=== PATIENT | male | born 1955 | race Caucasian/White ===

== ENCOUNTER 2023-12-06 10:23 | Emergency (ER) | payer MEDICARE, MEDICAID, SELFPAY ==
[2023-12-06 10:26] VITALS: BP 169/75; PULSE 113; RESP 18; TEMP 36.8; O2SAT 92; BMI 33.9
--- NOTE | 2023-12-06 10:27 | CT_ITS ---
WS: [id number] CT HEAD TECHNIQUE: Noncontrast CT of the head obtained from the skullbase to the vertex. CLINICAL INFORMATION: trauma COMPARISON: None. DLP: 1825.[address] scans at [facility] use at least one of these dose optimization techniques: automated e xposure control; mA and/or kV adjustment per patient size (includes targeted exams where dose is matc hed to clinical indication); or iterative reconstruction. FINDINGS: No evidence of intracranial hemorrhage or mass effect. Ventricular system and basal cisterns are ray nt. Advanced small vessel changes with moderate to advanced parenchymal volume loss. No extra-axial f luid collections. No evidence of mass or mass effect. Chronic lacunar infarct LEFT basal ganglia. Chr onic infarcts in the LEFT cerebellum. Small retention cyst RIGHT maxillary sinus. Mastoid air cells are well aerated. Normal posterior naso pharynx. IMPRESSION: 1. No evidence of intracranial hemorrhage or mass effect. 2. Advanced small vessel changes with moderate to advanced parenchymal volume loss. 3. Intracranial vascular calcification. 4. No acute intracranial findings.
--- NOTE | 2023-12-06 10:27 | CT_ITS ---
WS: [id number] CT CERVICAL TRAUMA TECHNIQUE: Noncontrast CT of the cervical spine with coronal and sagittal reformatted images. CLINICAL INFORMATION: trauma COMPARISON: None. DLP: 1825.[address] scans at [facility] use at least one of these dose optimization techniques: automated e xposure control; mA and/or kV adjustment per patient size (includes targeted exams where dose is matc hed to clinical indication); or iterative reconstruction. FINDINGS: Straightening of the normal cervical lordosis. Moderate spondylitic changes. Anterior hypertrophic ch anges in the mid cervical spine. Normal craniocervical junction. Normal C1-C2 articulation. Dens is n ormal in appearance. Normal occipital condyles. No high-grade spinal canal narrowing. Normal C1 ring. No evidence of acute fracture or dislocation. Normal prevertebral soft tissues. Mastoids air cells are well aerated. IMPRESSION: No evidence of acute fracture or dislocation.
--- NOTE | 2023-12-06 10:28 | XRR_ITS ---
PROCEDURE INFORMATION: Exam: XR Right Knee Exam date and time: 12/06/2023 10:36 AM Age: 68 years old Clinical indication: Injury or trauma; Fall; Bleeding/hemorrhage; Knee; Right TECHNIQUE: Imaging protocol: Radiologic exam of the right knee. Views: 3 views. COMPARISON: No relevant prior studies available. FINDINGS: Bones/joints: Minimal articular surface narrowing and spurring. Mild osteopenia. No erosions or chondrocalcinosis. Soft tissues: Normal. Vasculature: Arterial calcifications. XR/XR knee RT 3V* [id number] IMPRESSION: No acute findings.
--- NOTE | 2023-12-06 10:35 | XRR_ITS ---
PROCEDURE INFORMATION: Exam: XR Left Shoulder Exam date and time: 12/06/2023 10:58 AM Age: 68 years old Clinical indication: Injury or trauma; Fall; Blunt trauma (contusions or hematomas); Shoulder; Left TECHNIQUE: Imaging protocol: Radiologic exam of the left shoulder. Views: 2 or more views. COMPARISON: No relevant prior studies available. FINDINGS: Bones/joints: Moderate acromioclavicular and glenohumeral spurring. Rotator cuff degeneration with the humeral head riding immediately beneath the acromion process. No fracture or dislocation. Deformity of multiple left ribs from prior fracture. Pleural space: Pleural thickening as well as an infiltrate or fibrosis is seen in the left lung. Routine chest radiographs recommended. Soft tissues: Normal. XR/XR shoulder LT min 2V* [id number] IMPRESSION: 1. Degenerative changes. 2. Evidence of prior left chest trauma. 3. Abnormal left lung, routine chest radiograph suggested.
--- NOTE | 2023-12-06 10:46 | W.ED.FALL ---
HPI - Fall General: Chief Complaint: Head Injury Stated Complaint: Fall Time Seen by Provider: 12/06/23 10:24 Source: patient Mode of arrival: EMS History of Present Illness: 68-year-old male presents via EMS from [facility]. Patient is walking to the bathroom without a walker and stumbled and fell. He has a small abrasion above his left eye is complaining of right knee pain and left shoulder pain. He is not on any anticoagulants. He denies any nausea or vomiting. C-collar is in place. MD complaint: fall Onset (ago): hour(s) Fall from: standing Fall witnessed: yes, by living facility staff Place fall occurred: assisted/SNF Loss of consciousness: None Prolonged down time: no Context: tripped/slipped Location of injury: head Location of injury - extremities: Left: shoulder and Right: knee Associated symptoms-after fall: Denies abdominal pain, chest pain, confusion, difficulty walking, headache(s), hematuria, lightheadedness, neck pain, numbness, short of breath, vertigo or weakness Review of Systems Const: Denies: fever(s) or chills Card: Denies: chest pain or lightheadedness Resp: Denies: dyspnea GI: Denies: abdominal pain : Denies: hematuria Musc: Denies: neck pain Skin/Breast: Denies: rash Neuro: Denies: headache(s), difficulty walking, vertigo or confusion Physical Exam Const: COMMON NORMALS: no acute distress GENERAL APPEARANCE: cooperative and comfortable ORIENTATION/CONSCIOUSNESS: Yes awake, Yes oriented to person, Yes oriented to place and Yes oriented to time HENMT: COMMON NORMALS: normocephalic HEAD & SCALP: normocephalic OTHER: partial thickness abrasion above L eye Resp: COMMON NORMALS: normal respiratory effort, No retractions, No use of accessory muscles and clear to auscultation bilaterally AUSCULTATION: clear to auscultation bilaterally Cardio: COMMON NORMALS: regular rate, regular rhythm and No murmurs present (Cardio) RATE: regular rate RHYTHM: regular rhythm GI: COMMON NORMALS: Soft to palpation and No hepatosplenomegaly present AUSCULTATION: Yes normoactive bowel sounds PALPATION: Yes Soft to palpation, No Tenderness to palpation present (GI), No Guarding due to palpation present (GI) and Yes No hepatosplenomegaly present Extremity: COMMON NORMALS: normal to inspection, capillary refill normal, no clubbing, cyanosis or edema, no calf tenderness and no pedal edema Neuro: SENSORIUM/ORIENTATION: Yes oriented to person, Yes oriented to place and Yes oriented to time Skin: COMMON NORMALS: no rashes or lesions noted GENERAL SKIN EXAM: no rashes or lesions noted Course Vital Signs: Vital signs: Vital Signs Temperature 98.2 F 12/06/23 15:17 Pulse Rate 107 H 12/06/23 15:17 Respiratory Rate 18 12/06/23 15:17 Blood Pressure 139/90 12/06/23 15:17 Pulse Oximetry 92 12/06/23 15:17 Oxygen Delivery Me thod Room Air 12/06/23 13:52 MDM - Fall Medical Decision Making Patient fell while walking to the bathroom. He did hit his head. CTs unremarkable no acute fractures no intracranial bleeding. He has had falls in the past. He is abrasion on the forehead does not need intervention can apply topical antibiotic ointment discharged back to the assisted labs and imaging reviewed Medical Records I reviewed the patient's medical records. Lab Data I reviewed the patient's lab results. 12/06/23 10:47 12/06/23 10:47 Radiology Impressions Knee X-Ray 12/06/23 10:28 IMPRESSION: No acute findings. Shoulder X-Ray 12/06/23 10:35 IMPRESSION: 1. Degenerative changes. 2. Evidence of prior left chest trauma. 3. Abnormal left lung, routine chest radiograph suggested. Laboratory Results WBC 9.75 10^3/uL (3.29-11.43) 12/06/23 10:47 RBC 5.04 10^6/uL (3.85-5.65) 12/06/23 10:47 Hgb 14.10 g/dL (11.27-16.99) 12/06/23 10:47 Hct 44.6 % (37-53) 12/06/23 10:47 MCV 88.5 fl (82-101) 12/06/23 10:47 MCH 28.0 pg (27-33) 12/06/23 10:47 MCHC 31.6 g/dL (30-55) 12/06/23 10:47 RDW 14.1 % (12.1-15.1) 12/06/23 10:47 Plt Count 259 10^3/cmm (157-399) 12/06/23 10:47 MPV 10.3 fL (7.4-10.4) 12/06/23 10:47 Neut % (Auto) 82.0 % 12/06/23 10:47 Lymph % (Auto) 9.5 % 12/06/23 10:47 Antelope % (Auto) 6.4 % 12/06/23 10:47 Eos % (Auto) 1.4 % 12/06/23 10:47 Baso % (Auto) 0.4 % 12/06/23 10:47 Neut # (Auto) 7.99 10^3/uL (1.8-7.7) H 12/06/23 10:47 Lymph # (Auto) 0.9 10^3/uL (0.8-4.8) 12/06/23 10:47 Antelope # (Auto) 0.6 10^3/uL (0.2-0.9) 12/06/23 10:47 Eos # (Auto) 0.1 10^3/uL (0.0-0.8) 12/06/23 10:47 Baso # (Auto) 0.0 10^3/uL (0.0-0.1) 12/06/23 10:47 Nucleated RBC % (auto) 0 % 12/06/23 10:47 Nucleated RBCs # 0.0 /100WBC 12/06/23 10:47 Sodium 135 mmol/L (136-145) L 12/06/23 10:47 Potassium 3.8 mmol/L (3.5-5.1) 12/06/23 10:47 Chloride 98 mmol/L (98-107) 12/06/23 10:47 Carbon Dioxide 28 mmol/L (22-29) 12/06/23 10:47 Anion Gap 12.8 (5-19) 12/06/23 10:47 BUN 19 mg/dL (8-23) 12/06/23 10:47 Creatinine 1.4 mg/dL (0.7-1.2) H 12/06/23 10:47 GFR Calculation 50.7 mL/min (90-130) L 12/06/23 10:47 Glucose 374 mg/dL (65-115) H 12/06/23 10:47 POC Glucose 281 mg/dL (70-110) H 12/06/23 12:34 Calculated Osmolality 298 mOsm/kg (285-295) H 12/06/23 10:47 Calcium 8.1 mg/dL (8.5-10.5) L 12/06/23 10:47 Total Bilirubin 0.3 mg/dL (0.15-1.2) 12/06/23 10:47 AST 16 U/L (0-40) 12/06/23 10:47 ALT 9 U/L (0-41) 12/06/23 10:47 Alkaline Phosphatase 83 U/L (40-130) 12/06/23 10:47 Total Protein 6.9 g/dL (6.6-8.7) 12/06/23 10:47 Albumin 2.8 g/dL (3.5-5.2) L 12/06/23 10:47 Globulin 4.1 g/dL (1.3-4.6) 12/06/23 10:47 Urine Color Yellow (Yellow) 12/06/23 11:39 Urine Appearance Clear (CLEAR) 12/06/23 11:39 Urine pH 6 (5-7) 12/06/23 11:39 Ur Specific [place] 1.010 (1.005-1.030) 12/06/23 11:39 Urine Protein Neg (Negative) 12/06/23 11:39 Urine Glucose (UA) 4+ (Normal) H 12/06/23 11:39 Urine Ketones Negative (Negative) 12/06/23 11:39 Urine Blood Neg (Negative) 12/06/23 11:39 Urine Nitrate Negative (Negative) 12/06/23 11:39 Urine Bilirubin Neg (Negative) 12/06/23 11:39 Urine Urobilinogen Norm mg/dL (Negative) 12/06/23 11:39 Ur Leukocyte Esterase Negative (Negative) 12/06/23 11:39 All radiology interpretation(s) finalized by discharge Discharge Plan Discharge Patient Disposition: Home Clinical Impression: Closed head injury, Hyperglycemia Condition: Stable Discharge Orders: Discharge ED (Routine); Ordered 12/06/23 Ordered By: Rowdy Choi Discharge Diet: Usual diet Discharge Activity: Increase activity as tolerated Patient Instructions: Opioid Safety, Pain Management Activity Restrictions/Additional Instructions: Thank you for choosing [facility] for your healthcare needs today. Please realize this is an emergency room and that we are providing you with a medical screening exam and this may not be complete and all inclusive of all the testing and or work up that you may need to determine your ailment or severity of your illness. It is very important that you follow up as instructed or that you return to the Emergency Department should you have concerns or if your condition changes or worsens in any way. You were seen today after a fall. Scan the head and neck and plain x-rays did not show any acute injury. The abrasion on the forehead does not require stitches you can apply topical antibiotic ointment to it once or twice a day until healed. Coding Level of Care Code ED Product Manager Medical Device for Ty Mathews
[2023-12-06 10:53] LABS: Basophils % 0.4 %; Eosinophils # 0.1 10^3/uL (0.0-0.8); Eosinophils % 1.4 %; Hematocrit 44.6 % (37-53); Lymphocytes # 0.9 10^3/uL (0.8-4.8); Lymphocytes % 9.5 %; Mean Corpuscular HGB Conc 31.6 g/dL (30-55); Mean Corpuscular Volume 88.5 fl (82-101); Mean Platelet Volume 10.3 fL (7.4-10.4); Monocytes # 0.6 10^3/uL (0.2-0.9); Monocytes % 6.4 %; Neutrophils # 7.99 10^3/uL (1.8-7.7); Nucleated Red Blood Cells % 0 %; Platelet Count 259 10^3/cmm (157-399); Red Blood Count 5.04 10^6/uL (3.85-5.65); Red Cell Distribution Width 14.1 % (12.1-15.1); White Blood Count 9.75 10^3/uL (3.29-11.43)
[2023-12-06 11:13] LABS: Alanine Aminotransferase 9 U/L (0-41); Albumin Level 2.8 g/dL (3.5-5.2); Alkaline Phosphatase 83 U/L (40-130); Anion Gap 12.8 (5-19); Aspartate Amino Transferase 16 U/L (0-40); Blood Urea Nitrogen 19 mg/dL (8-23); Calcium 8.1 mg/dL (8.5-10.5); Carbon Dioxide 28 mmol/L (22-29); Chloride 98 mmol/L (98-107); Globulin 4.1 g/dL (1.3-4.6); Glomerular Filtration Rate 50.7 mL/min (90-130); Glucose 374 mg/dL (65-115); Osmolality Calculated 298 mOsm/kg (285-295); Potassium 3.8 mmol/L (3.5-5.1); Sodium 135 mmol/L (136-145); Total Bilirubin 0.3 mg/dL (0.15-1.2); Total Protein 6.9 g/dL (6.6-8.7)
[2023-12-06 11:29] VITALS: BP 139/90; PULSE 114; RESP 18; O2SAT 90
[2023-12-06 11:35] VITALS: BP 139/90
[2023-12-06 11:48] LABS: Add Urine Microscopic? NO; Charge for UA Resulting for Rev
--- NOTE | 2023-12-06 11:54 | PC.NURSE ---
PATIENT C-COLLAR REMOVED PER PROVIDER.
[2023-12-06 11:56] LABS: Bilirubin Urine Neg (Negative); Blood Urine Neg (Negative); Glucose Urine UA 4+ (Normal); Ketones Urine Negative (Negative); Leukocyte Esterase Urine Negative (Negative); Nitrate Urine Negative (Negative); Protein Urine Neg (Negative); Urine Appearance Clear (CLEAR); Urine Color Yellow (Yellow); Urobilinogen Urine Norm (Negative); pH Urine 6 (5-7)
[2023-12-06 12:41] LABS: Glucose Point of Care 281 mg/dL (70-110)
[2023-12-06] MEDS: insulin nph human 100 units/1 mL 15 UNIT SUBCUT (13:28)
[2023-12-06] MEDS: tetanus-diphtheria tox (adult) 0.5 mL SDV IM (13:29)
[2023-12-06 13:52] VITALS: BP 139/90; PULSE 107; O2SAT 92
[2023-12-06 15:17] VITALS: BP 139/90; PULSE 107; RESP 18; TEMP 36.8; O2SAT 92
== END 2023-12-06 15:21 | disposition home or self-care (01) ==
PROVIDERS: Emergency Provider Family Medicine
DX: S00.81XA Abrasion of other part of head, initial encounter (principal); W01.0XXA Fall on same level from slipping, tripping and stumbling without subsequent striking against object, initial encounter; E11.65 Type 2 diabetes mellitus with hyperglycemia; Z23 Encounter for immunization
CPT/HCPCS: 36415; 36416; 70450; 72125; 73030; 73562; 80053; 81003; 82962; 85025; 90471; 90714; 96372; 99284; J1815

== ENCOUNTER 2024-02-13 16:39 | Inpatient (IN) | payer MEDICARE, MEDICAID, SELFPAY ==
[2024-02-13] VITALS (9 sets, daily range): BP systolic 158–179; BP diastolic 95–110; PULSE 97–105; RESP 15–28; TEMP 36.6–37; O2SAT 92–99; BMI 33.0
--- NOTE | 2024-02-13 16:40 | XRR_ITS ---
PROCEDURE INFORMATION: Exam: XR Right Hip Exam date and time: 02/13/2024 4:48 PM Age: 68 years old Clinical indication: Injury or trauma; Fall; Blunt trauma (contusions or hematomas); Right; Hip TECHNIQUE: Imaging protocol: Radiologic exam of the right hip. Views: 1 view hip with pelvis when performed. COMPARISON: No relevant prior studies available. FINDINGS: Bones/joints: There is a curvilinear of lucency projecting over the intertrochanteric portion of the right hip inconclusive for nondisplaced fracture. 2 cm mildly expansile radiolucent bone lesion right inferior pubic ramus probably benign but difficult to further assess on this study. There is prominent coarsened trabecular pattern within the right iliac bone partially visualized suspicious for Paget's disease. Soft tissues: Unremarkable. XR/XR hip RT 2-3V wo/w pel* [id number] IMPRESSION: 1. Findings inconclusive for nondisplaced intertrochanteric fracture right hip. Recommend follow-up CT exam for clarification. 2. Additional nonemergent findings as above.
--- NOTE | 2024-02-13 16:43 | XRR_ITS ---
PROCEDURE INFORMATION: Exam: XR Chest Exam date and time: 02/13/2024 4:52 PM Age: 68 years old Clinical indication: Injury or trauma; Fall; Blunt trauma (contusions or hematomas) TECHNIQUE: Imaging protocol: Radiologic exam of the chest. Views: 1 view. COMPARISON: CT cervical spin wo con* [id number] 12/06/2023 11:09 AM FINDINGS: Lungs: There are ill-defined masslike opacities left lower lung zone superimposed on left basilar consolidation and effusion that needs further evaluation. Right lung field is aerated and clear. Pleural spaces: Unremarkable. No pleural effusion. No pneumothorax. Heart/Mediastinum: Heart is mildly enlarged. Mediastinal silhouette is not well defined around the aorta knob which may be due to patient rotation. Bones/joints: There is deformity of the left lateral ribcage secondary to fractures of indeterminate age. XR/XR chest 1V portable [id number] IMPRESSION: 1. Nonspecific masslike consolidative opacities partially opacifying the left lower hemithorax which follow-up CT chest recommended for further assessment there 2. Deformity left mid ribcage that may be secondary to old fractures and should also be reassessed on follow-up chest CT.
--- NOTE | 2024-02-13 16:44 | ED_ITS ---
HPI - Fall General: Chief Complaint: Fall Stated Complaint: r hip pain post fall Time Seen by Provider: 02/13/24 16:40 Source: patient and EMS Mode of arrival: EMS Limitations: no limitations History of Present Illness: 68-year-old male is here from nursing [facility] he had a witnessed fall from standing landing on his right hip. He complains of right hip pain especially with movement he is not able to bear any weight on that hip. Denies hitting his head denies any other injuries rates his pain a 6 out of 10 currently. Associated symptoms-after fall: Denies abdominal pain, chest pain, headache(s) or neck pain Review of Systems Const: Denies: fever(s), chills, body aches or change in appetite ENMT: Denies: throat pain or dental pain Card: Denies: chest pain Resp: Denies: dyspnea GI: Denies: abdominal pain, nausea, vomiting or diarrhea Musc: Reports: extremity pain; Denies: neck pain or back pain Skin/Breast: Denies: rash Neuro: Denies: headache(s) Physical Exam Const: COMMON NORMALS: no acute distress, patient oriented x3 and healthy appearing HENMT: COMMON NORMALS: normocephalic and atraumatic HEAD & SCALP: normocephalic and atraumatic Eye: COMMON NORMALS: conjunctivae normal CONJUNCTIVA: Yes conjunctivae normal Neck/C-Spine: COMMON NORMALS: full ROM and supple Chest: COMMONS NORMALS: normal inspection of the chest Resp: COMMON NORMALS: normal respiratory effort, No retractions, No use of accessory muscles and clear to auscultation bilaterally AUSCULTATION: clear to auscultation bilaterally Cardio: COMMON NORMALS: regular rate, regular rhythm and No murmurs present (Cardio) RATE: regular rate RHYTHM: regular rhythm GI: COMMON NORMALS: Normal to inspection, nondistended, normoactive bowel sounds present, Soft to palpation, non-tender and no masses PALPATION: Yes Soft to palpation Extremity: COMMON NORMALS: normal to inspection NARRATIVE EXTREMITY EXAM: Tenderness noted to left hip Neuro: COMMON NORMALS: patient oriented x3, moves all extremities and no focal motor deficits Psych: COMMON NORMALS: mental status grossly normal, Normal thought process present and cooperative THOUGHT PROCESS: Normal thought process present Skin: COMMON NORMALS: no rashes or lesions noted and no wounds GENERAL SKIN EXAM: no rashes or lesions noted Course Vital Signs: Vital signs: Vital Signs Temperature 97.9 F 02/13/24 16:47 Pulse Rate 99 02/13/24 16:44 Respiratory Rate 16 02/13/24 16:52 Blood Pressure 162/103 02/13/24 16:44 Pulse Oximetry 92 02/13/24 16:52 Oxygen Delivery Me thod Room Air 02/13/24 16:44 MDM - Fall Medical Decision Making Patient presents with right hip fracture from a fall spoke to orthopedist along with hospitalist will admit he has no other injuries no head injuries. Medical Records I reviewed the patient's medical records. Lab Data I reviewed the patient's lab results. All radiology interpretation(s) finalized by discharge Discharge Plan Discharge Patient Disposition: Admitted As Inpatient Clinical Impression: Closed fracture of right hip Condition: Stable Coding Level of Care Code ED Manager Integration for Ty Mathews
--- NOTE | 2024-02-13 16:44 | ECG_ITS ---
[facility] Test Date: 2024-02-13 Pat Name: Jarrod Almonte Department: Room: Gender: Male Music Therapist: : 1955 Requested By: Kayla Villa Order Number: [id number] Nicole MD: Prince Angeles M.D. Measurements Intervals [place] Rate: 98 P: 46 [place]: 208 QRS: -12 QRSD: 97 T: 93 QT: 359 QTc: 459 Interpretive Statements SINUS RHYTHM ANTERIOR MYOCARDIAL INFARCTION , OF INDETERMINATE AGE [40+ ms Q WAVE AND/OR ST/T ABNORMALITY IN V3/V4] No previous ECG available for comparison Electronically Signed On 02-13-2024 22:50:47 CDT by Prince Angeles M.D. [id number]
[2024-02-13] MEDS: morphine 4 mg/mL SDV 1 mL IVP ×2 (16:52→18:31)
[2024-02-13] MEDS: ondansetron 2 mg/ML SDV 2 mL 4 MG IVP (16:53)
--- NOTE | 2024-02-13 17:09 | PM.HP ---
Providers/Chief Complaint Chief Complaint: r hip pain post fall History of Present Illness Jarrod Almonte is a 68 year old male resident of [facility] presented with chief complaint of sustaining a fall. Patient is stating that he was walking when he slipped entering the door where landed on his right side. He was not able to bear weight on his legs at that time EMS was called in the ER he has been diagnosed with hip fracture Dr. Ag will see him in the morning, he is not complaining active chest pain shortness of breath confusion shortness of breath or worsening of hip pain. He does not carry any history of coronary disease [facility] CHF. No recent seizure related activity, his son lives nearby. He is full code. Review of Systems Const: Denies: fever(s) Eyes: Denies: change in vision ENMT: Denies: throat pain Card: Denies: chest pain Resp: Denies: dyspnea GI: Denies: abdominal pain : Denies: flank pain Musc: Reports: back pain and extremity pain Medications/Allergies Allergies Allergy/AdvReac Type Severity Reaction Status Date / Time No Known Allergies Allergy Verified 12/06/23 10:33 PFSH Acute PFSH: Medical History Hypertension Diabetes Family History Other CAD (coronary artery disease) Social History Smoking and tobacco/nicotine status: never used tobacco/nicotine Vitals/I&O/Wt Last Vital Signs Temp 97.9 F 02/13/24 16:47 Pulse 99 02/13/24 16:44 Resp 16 02/13/24 16:52 BP 162/103 02/13/24 16:44 Pulse Ox 92 02/13/24 16:52 O2 Del Method Room Air 02/13/24 16:44 Weight last 48 hrs Weight 110.677 kg Physical Exam Narrative: Patient is awake and alert Laying supine Nonfocal neuroexam Hypertensive Lower extremity trace edema Ankle swelling noted Pleasant cooperative S1, S2 No audible stridor or wheezing Currently on room air Data 02/13/24 17:11 02/13/24 17:11 A&P Assessment and plan (1) Closed fracture of right hip: Plan Hip fracture after sustaining a fall Mechanical fall Request Faye catheter Opioids for pain management along bowel regimen Dr. Ag consulted N.p.o. at midnight DVT prophylaxis: SCDs For hypertension I will give him beta-rafa and amlodipine Request BNP Full code Resident of residential, History of diabetes we will use consistent carb diet until midnight Check A1c level and use sliding scale for now Attestations Medical Necessity Statement*: More than 2 midnights anticipated for management of hip fracture Diagnoses Closed fracture of right hip S72.001A
[2024-02-13 17:19] LABS: Basophils # 0.1 10^3/uL (0.0-0.1); Basophils % 0.5 %; Eosinophils # 0.2 10^3/uL (0.0-0.8); Eosinophils % 1.6 %; Hematocrit 39.7 % (37-53); Lymphocytes # 1.2 10^3/uL (0.8-4.8); Lymphocytes % 12.8 %; Mean Corpuscular HGB Conc 30.5 g/dL (30-55); Mean Corpuscular Hemoglobin 27.5 pg (27-33); Mean Corpuscular Volume 90.2 fl (82-101); Mean Platelet Volume 9.1 fL (7.4-10.4); Monocytes # 0.8 10^3/uL (0.2-0.9); Neutrophils # 7.26 10^3/uL (1.8-7.7); Neutrophils % 76.7 %; Nucleated Red Blood Cells % 0 %; Platelet Count 349 10^3/cmm (157-399); Red Cell Distribution Width 16.9 % (12.1-15.1); White Blood Count 9.47 10^3/uL (3.29-11.43)
[2024-02-13 17:34] LABS: Alanine Aminotransferase 10 U/L (0-41); Albumin Level 2.7 g/dL (3.5-5.2); Alkaline Phosphatase 104 U/L (40-130); Anion Gap 12.2 (5-19); Aspartate Amino Transferase 24 U/L (0-40); Blood Urea Nitrogen 16 mg/dL (8-23); Calcium 7.7 mg/dL (8.5-10.5); Carbon Dioxide 28 mmol/L (22-29); Chloride 98 mmol/L (98-107); Creatinine Clr Calc Pharmacy 71.8107; Globulin 4.6 g/dL (1.3-4.6); Glomerular Filtration Rate 55.2 mL/min (90-130); Glucose 124 mg/dL (65-115); Osmolality Calculated 281 mOsm/kg (285-295); Potassium 4.2 mmol/L (3.5-5.1); Sodium 134 mmol/L (136-145); Total Bilirubin 0.2 mg/dL (0.15-1.2); Total Protein 7.3 g/dL (6.6-8.7)
[2024-02-13] MEDS: morphine IR 15 mg Tablet PO (19:48)
[2024-02-13] MEDS: metoprolol tartrate 25 mg Tablet PO (19:48)
[2024-02-13] MEDS: sodium chloride 0.9% 1,000 ML 75 ML IV (19:50)
[2024-02-13 19:54] LABS: Estmated Average Glucose 128; Hemoglobin A1C 6.1 % (4.0-6.0)
[2024-02-13 20:10] LABS: Thyroid Stimulating Hormone 5.23 uIU/mL (0.27-4.20); Vitamin B12 1008 pg/mL (232-1245)
[2024-02-13] MEDS: ALPRAZolam 0.5 mg Tablet PO (21:49)
[2024-02-14] VITALS (9 sets, daily range): BP systolic 111–158; BP diastolic 64–99; PULSE 66–80; RESP 16–18; TEMP 36.3–37.1; O2SAT 90–93
[2024-02-14 05:22] LABS: Basophils # 0.1 10^3/uL (0.0-0.1); Basophils % 0.4 %; Eosinophils # 0.1 10^3/uL (0.0-0.8); Eosinophils % 1.2 %; Hematocrit 36.4 % (37-53); Lymphocytes # 1.9 10^3/uL (0.8-4.8); Lymphocytes % 15.9 %; Mean Corpuscular HGB Conc 31.3 g/dL (30-55); Mean Corpuscular Hemoglobin 27.6 pg (27-33); Mean Corpuscular Volume 88.1 fl (82-101); Mean Platelet Volume 9.2 fL (7.4-10.4); Monocytes # 1.1 10^3/uL (0.2-0.9); Monocytes % 9.3 %; Neutrophils # 8.45 10^3/uL (1.8-7.7); Neutrophils % 72.8 %; Nucleated Red Blood Cells % 0 %; Platelet Count 354 10^3/cmm (157-399); Red Blood Count 4.13 10^6/uL (3.85-5.65); Red Cell Distribution Width 16.8 % (12.1-15.1); White Blood Count 11.62 10^3/uL (3.29-11.43)
[2024-02-14 05:36] LABS: Anion Gap 10.5 (5-19); Blood Urea Nitrogen 15 mg/dL (8-23); C Reactive Protein 38.6 mg/L (0.0-4.9); Carbon Dioxide 28 mmol/L (22-29); Chloride 98 mmol/L (98-107); Creatinine Clr Calc Pharmacy 84.3585; Magnesium 1.8 mg/dL (1.7-2.3); Osmolality Calculated 271 mOsm/kg (285-295); Phosphorus 3.3 mg/dL (2.5-4.5); Potassium 4.5 mmol/L (3.5-5.1); Sodium 132 mmol/L (136-145)
[2024-02-14 05:50] LABS: Glucose 38 mg/dL (65-115)
[2024-02-14] MEDS: dextrose 10% 125 ML 750 ML IV (06:06)
--- NOTE | 2024-02-14 06:26 | PC.NURSE ---
Low glucose: Pt with glucose of 38, bag of D10 pulled from pyxis on override to hang until hypoglycemia protocol could be initiated.
[2024-02-14] MEDS: dextrose 5%-sod chloride 0.45% 1,000 ML 75 ML IV (06:33)
[2024-02-14 06:41] LABS: Glucose Point of Care 78 mg/dL (70-110)
[2024-02-14 06:41] LABS: Glucose Point of Care 74 mg/dL (70-110)
--- NOTE | 2024-02-14 07:48 | CT_ITS ---
WS: [id number] CT RIGHT HIP, NONCONTRAST HISTORY: fracture Technique: All CT scans at [facility] use at least one of these dose optimization techniques: automated exposure control; mA and/or kV adjustment per patient size (includes targeted exams where dose is matched to clinical indication); or iterative reconstruction. DLP: 529.33 mGy.cm COMPARISON: Radiograph 02/13/2024 Acute RIGHT hip fracture. Slightly comminuted intertrochanteric fracture. The fracture extends to the base of the femoral neck. Mild separation along the anterior fracture line near the superior greater trochanter measures 1.2 cm. There are additional sclerotic changes at the femoral head with subchond ral cystic changes and loss of the normal cortex consistent with developing osteonecrosis. No acetabu lar fracture. Mild degenerative air in the SI joint. Remote healed fracture inferior RIGHT pubic rami. Heavy calcification in the iliac and femoral artery. Small soft tissue hematoma lateral to the hip. F oley catheter noted in the urinary bladder. CT/CT hip RT wo con* [id number] IMPRESSION: Mildly comminuted and impacted intratrochanteric fracture. Remote RIGHT inferior pubic rami fracture. Small soft tissue hematoma/contusion lateral to the RIGHT hip fracture. RIGHT femoral head osteonecrosis.
--- NOTE | 2024-02-14 08:15 | P.CONIM_ITS ---
Providers/Reason For Consult 2 Consulting Physician/Specialty*: Hospitalist Reason for Consult*: Right hip fracture Attending Physician: Alex Cortes MD History of Present Illness History of Present Illness Jarrod Almonte is a 68 year old male resident of [facility] presented with chief complaint of sustaining a fall. Patient is stating that he was walking when he slipped entering the door where landed on his right side. He was not able to bear weight on his legs at that time EMS was called in the ER he has been diagnosed with hip fracture Review of Systems 2 Const: Denies: fever(s) Eyes: Denies: change in vision ENMT: Denies: throat pain Card: Denies: chest pain Resp: Denies: dyspnea GI: Denies: abdominal pain : Denies: flank pain Musc: Reports: back pain and extremity pain Medications/Allergies Allergies Allergy/AdvReac Type Severity Reaction Status Date / Time No Known Allergies Allergy Verified 12/06/23 10:33 Current Medications Generic Name Dose Route Start Last Admin Trade Name Freq PRN Reason Stop Dose Admin Dextrose 125 mls @ 750 mls/hr 02/13/24 19:28 02/14/24 06:26 D10w IV Infused PRN PRN Infusion Adult Acute Hypoglycemia Nursing Protocol Protocol Dextrose/Sodium Chloride 1,000 mls @ 75 mls/hr 02/14/24 06:30 02/14/24 06:33 Dextrose 5%-Sod Chloride 0.45% IV 75 mls/hr .[id number] CYRIL Administration Metoprolol Tartrate 25 mg 02/13/24 19:28 02/13/24 21:23 Metoprolol Tartrate 25 Mg Tablet PO Not Given BID@0900,2100 CYRIL Morphine Sulfate 15 mg 02/13/24 19:28 02/13/24 19:48 Morphine Ir 15 Mg Tablet PO 15 mg Q6H PRN Administration MODERATE PAIN PFSH Acute 2 PFSH: Medical History Hypertension Diabetes Family History Other CAD (coronary artery disease) Social History Smoking and tobacco/nicotine status: never used tobacco/nicotine Vitals/I&O/Wt Last Vital Signs Temp 98.0 F 02/14/24 08:00 Pulse 76 02/14/24 08:02 Resp 16 02/14/24 08:02 BP 126/75 02/14/24 08:00 Pulse Ox 93 02/14/24 08:02 O2 Del Method Room Air 02/14/24 08:02 02/13/24 02/14/24 02/14/24 22:59 06:59 14:59 Intake Total 240 / 240 1127.5 / 1367.5 Output Total 0 / 0 Balance 240 / 240 1127.5 / 1367.5 Weight last 48 hrs Weight 241 lb Weight 244 lb Weight 244 lb Physical Exam 2 Narrative: Patient laying flat in bed Urinary Catheter Management: Faye: Cath Placed During This Visit: yes Reason for Continuing Indwelling Catheter: Required Immobilization for Trauma or Surgery or Anesthesia Urinary Catheter Date of Insertion: 02/13/24 Urinary Catheter Time of Insertion: 18:27 Data 02/14/24 04:35 02/14/24 04:35 A&P Assessment and plan (1) Closed fracture of right hip: Patient has right nondisplaced intertrochanteric hip fracture. However would like a CT scan to confirm. CT scan was ordered today. If fracture is present we will likely do surgery tomorrow. N.p.o. after midnight Qualifiers: Encounter type: initial encounter Qualified Code(s): S72.001A - Fracture of unspecified part of neck of right femur, initial encounter for closed fracture Coding Level of Care Code Acute Code for Chg Fwd Diagnoses Closed fracture of right hip, initial encounter S72.001A Encounter type: initial encounter
[2024-02-14] MEDS: amlodipine 10 mg Tablet PO (08:30)
[2024-02-14] MEDS: metoprolol tartrate 25 mg Tablet PO ×2 (08:30→20:43)
[2024-02-14] MEDS: sennosides-docusate Tablet 1 TAB PO (08:30)
[2024-02-14] MEDS: morphine IR 15 mg Tablet PO (08:32)
--- NOTE | 2024-02-14 08:47 | PC.NURSE ---
8 oz of orange jusice given to patient per hypoglycemia protocol. Dr. Cortes notified.
[2024-02-14 08:49] LABS: Glucose Point of Care 47 mg/dL (70-110)
--- NOTE | 2024-02-14 09:25 | PC.CHAP ---
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 [] Patient/Family/Request visit [] Outpatient visit [] Follow-up visit [] Physician referral [] Code/Alert [] Routine visit [] Staff referral [] Actively dying [] Patient sleeping [] Family support [] [] Out of room [] Palliative care [] [x] Receiving care in room [] Pre-surgical visit [] Trauma [] Long length of stay [] ICU visit [] Other: Relational/Emotional Strength [] Patient feels connected with others/family/visitors/staff [] Distress [] Loneliness/isolation [] Abandonment Spirituality of Patient [] Person of Tamra [] Attends Anabaptist of their Tamra [] Believes in Prayer [] Reads Bible or Mosque materials [] There are Spiritual issues to be addressed 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 Interventions [] Prayer [] Active listening [] Non-anxious presence [] Spiritual/emotional support [] Crisis/trauma care [] Spiritual counseling [] Bereavement support [] Provided bereavement packet [] Provided Bible/devotional materials [] Provided toy/stuffed animal, coloring book to patient or family member [] Provided Communion [] Anointing/[place] [] Salvation [] Completed spiritual assessment [] Other: Impact on Illness or Injury [] Angry [] Fearful [] Anxious [] Often cries [] Exhaustion [] Unable to work [] Unable to attend scientology [] Unable to walk/stand [] Unable to read [] Unable to drive [] Unable to eat/drink [] Unable to sleep [] Unable to be with family [] Patient intubated [] Other: Summary Time spent with patient
[2024-02-14 09:38] LABS: Glucose Point of Care 67 mg/dL (70-110)
[2024-02-14] MEDS: glucagon 1 mg/mL KIT 1 mL IM (11:38)
--- NOTE | 2024-02-14 11:45 | P.PN_ITS ---
Subjective 2 Subjective: Plan for surgical intervention tomorrow Hyperglycemia without any active symptoms Patient was awake alert oriented, he was given juice Getting dextrose IV fluids Vitals/I&O/Wt Last Vital Signs Temp 97.4 F L 02/14/24 11:28 Pulse 66 02/14/24 11:28 Resp 16 02/14/24 11:28 BP 111/64 02/14/24 11:28 Pulse Ox 93 02/14/24 08:02 O2 Del Method Room Air 02/14/24 08:02 02/13/24 02/14/24 02/14/24 22:59 06:59 14:59 Intake Total 240 / 240 1127.5 / 1367.5 Output Total 0 / 0 1999 Balance 240 / 240 1127.5 / 1367.5 -1999 Weight last 48 hrs Weight 109.316 kg Weight 110.677 kg Weight 110.677 kg Physical Exam 2 Narrative: Patient is awake and alert Pleasant cooperative Faye catheter in place S1, S2 Currently on room air non Focal exam Hemodynamic stable Abdomen soft Urinary Catheter Management: Faye: Cath Placed During This Visit: yes Reason for Continuing Indwelling Catheter: Required Immobilization for Trauma or Surgery or Anesthesia Urinary Catheter Date of Insertion: 02/13/24 Urinary Catheter Time of Insertion: 18:27 Data 02/14/24 04:35 02/14/24 04:35 A&P Assessment and plan (1) Closed fracture of right hip: Qualifiers: Encounter type: initial encounter Qualified Code(s): S72.001A - Fracture of unspecified part of neck of right femur, initial encounter for closed fracture (2) Hypoglycemia: Plan Mechanical fall resulting in hip fracture Plan for surgical intervention tomorrow by Dr. Ag I will let him eat today He became hypoglycemic without any significant symptoms Currently on D5 half-normal saline fluids at 75 mill per hour which I would continue Continue cardiac consistent carb diet today N.p.o. after midnight for tomorrow Will keep him on sliding scale only He normally takes 44 units of long-acting insulin twice a day which I am avoiding for now Start anticoagulating agent after surgery tomorrow Hold aspirin Hold losartan May resume memantine Protonix and Depakote Attestations 2 Medical Necessity Statement*: Surgical intervention tomorrow Diagnoses Closed fracture of right hip, initial encounter S72.001A Encounter type: initial encounter Hypoglycemia E16.2
[2024-02-14 11:46] LABS: Glucose Point of Care 67 mg/dL (70-110)
[2024-02-14 12:46] LABS: Glucose Point of Care 111 mg/dL (70-110)
[2024-02-14 17:07] LABS: Glucose Point of Care 41 mg/dL (70-110)
[2024-02-14] MEDS: divalproex ER 500 mg Tablet (24H) PO ×2 (17:55→20:43)
[2024-02-14] MEDS: dextrose 5%-sod chloride 0.45% 1,000 ML 100 ML IV (18:01)
[2024-02-14 18:06] LABS: Glucose Point of Care 102 mg/dL (70-110)
[2024-02-14 21:04] LABS: Glucose Point of Care 172 mg/dL (70-110)
[2024-02-15] VITALS (24 sets, daily range): BP systolic 132–204; BP diastolic 82–119; PULSE 75–103; RESP 12–25; TEMP 36.3–37.3; O2SAT 87–98
--- NOTE | 2024-02-15 | XR_ITS ---
WS: [id number] XR hip RT 2-3V wo/w pel* [id number] REASON FOR EXAM: LAURO PICS FINDINGS: Short intramedullary yessenia and long nail fixation of intertrochanteric fracture. Surgical appliances are intact and in proper position and alignment. Fracture fragments are in good position and alignment. XR/XR hip RT 2-3V wo/w pel* [id number] IMPRESSION: Left hip fracture with fixation without abnormality.
[2024-02-15] MEDS: dextrose 5%-sod chloride 0.45% 1,000 ML 100 ML IV (03:07)
[2024-02-15 05:51] LABS: Basophils # 0.1 10^3/uL (0.0-0.1); Basophils % 0.4 %; Eosinophils # 0.1 10^3/uL (0.0-0.8); Eosinophils % 0.7 %; Hematocrit 40.5 % (37-53); Lymphocytes # 1.3 10^3/uL (0.8-4.8); Lymphocytes % 9.5 %; Mean Corpuscular HGB Conc 31.6 g/dL (30-55); Mean Corpuscular Hemoglobin 27.8 pg (27-33); Mean Platelet Volume 8.9 fL (7.4-10.4); Monocytes % 7.8 %; Nucleated Red Blood Cells % 0 %; Platelet Count 371 10^3/cmm (157-399); Red Cell Distribution Width 16.5 % (12.1-15.1)
[2024-02-15 06:19] LABS: Anion Gap 10.1 (5-19); Blood Urea Nitrogen 12 mg/dL (8-23); Calcium 8.4 mg/dL (8.5-10.5); Carbon Dioxide 32 mmol/L (22-29); Chloride 96 mmol/L (98-107); Creatinine Clr Calc Pharmacy 92.6266; Glomerular Filtration Rate 74.8 mL/min (90-130); Glucose 163 mg/dL (65-115); Osmolality Calculated 279 mOsm/kg (285-295); Potassium 5.1 mmol/L (3.5-5.1); Sodium 133 mmol/L (136-145)
[2024-02-15 06:40] LABS: Glucose Point of Care 167 mg/dL (70-110)
[2024-02-15] MEDS: sodium chloride 0.9% 1,000 ML 30 ML IV (07:53)
--- NOTE | 2024-02-15 08:19 | W.PM.OPSUD ---
Surgery/Procedure H&P Update DATE OF PROCEDURE: February 15, 2024 DATE H&P PERFORMED: 02/14/24 H&P UPDATE INFORMATION: I have reviewed H&P completed within last 30 days, I have examined patient prior to procedure and No changes to prior documentation PREOP DIAGNOSIS: Right intertrochanteric hip fracture PLANNED PROCEDURE: Operation Date: 02/15/24 16:05 Proposed Procedures p Trochanteric Femoral Nail(Right) - Amish Ag DO
[2024-02-15] MEDS: ceFAZolin 2,000 MG in sodium chloride 0.9% (plus) 50 ML 100 MG IV ×3 (08:24→23:35)
--- NOTE | 2024-02-15 09:46 | PM.OP ---
Operative Report Date of procedure: February 15, 2024 Pre-op diagnosis: Right intertrochanteric hip fracture Post-op diagnosis: same Procedure done: Right intramedullary hip nail Surgeon: Amish Ag DO Estimated blood loss (mL): 15 Procedure: Right intramedullary hip nail Please brought the op suite after undergoing anesthesia patient was placed on the [place] table. All areas appear well-padded. Patient's traction and internal rotation performed C-arm confirmed the fracture was reduced. Patient was then prepped and draped normal sterile fashion. Skin incision made proximal to the greater trochanter. The tubular wire was placed at the tip the greater trochanter. And driven in AP lateral fluoroscopy ensured the starting point was good position. Opening reamer was inserted. The Arthrex hip nail was then inserted. And then a wire for the lag screw was placed up in the center center position of the femoral head. Then the lag screw was placed. The screw was then compressed. And then the distal locking screw was placed. AP lateral fluoroscopy ensured that the nail and screws were all good position fracture was reduced in good position. Wounds were irrigated and closed with Vicryl and candelaria. Sterile dressings were applied patient transferred to the PACU in stable condition.
--- NOTE | 2024-02-15 09:52 | P.PN_ITS ---
Subjective 2 Subjective: Blood sugar improved Going for surgery intervention today Right intramedullary nail Request PT after intervention Start DVT prophylaxis today Vitals/I&O/Wt Last Vital Signs Temp 99.1 F 02/15/24 07:39 Pulse 75 02/15/24 07:39 Resp 15 02/15/24 07:39 BP 193/119 02/15/24 07:39 Pulse Ox 92 02/15/24 07:39 O2 Del Method Nasal Cannula 02/15/24 07:15 O2 Flow Rate 2.0 02/15/24 07:39 02/14/24 02/15/24 02/15/24 22:59 06:59 14:59 Intake Total 860.833 / 962.049 9615 / 2010.833 Output Total 800 / 2800 3700 / 6500 1500 / 1500 Balance 60.833 / -1939.167 -2550 / -4489.167 -1500 / -1500 Weight last 48 hrs Weight 108.908 kg Weight 109.316 kg Weight 110.677 kg Weight 110.677 kg Physical Exam 2 Narrative: Pleasant cough Nonfocal neuroexam Nonfocal neuroexam Pleasant S1, S2 Abdomen soft Requiring 1 to 2 L Urinary Catheter Management: Faye: Cath Placed During This Visit: yes Reason for Continuing Indwelling Catheter: Other Urinary Catheter Date of Insertion: 02/13/24 Urinary Catheter Time of Insertion: 18:27 Data 02/15/24 05:30 02/15/24 05:30 A&P Assessment and plan (1) Hypoglycemia: (2) Closed fracture of right hip: Qualifiers: Encounter type: initial encounter Qualified Code(s): S72.001A - Fracture of unspecified part of neck of right femur, initial encounter for closed fracture Plan Postop day 0 Right intramedullary hip nail DVT prophylaxis to be initiated today Physical therapy requested as well For hypertension I will resume metoprolol, add losartan 50 mg as well Discontinue fluid after 4 hours Monitor for atelectasis fever Rester distress Incentive spirometer Bowel regimen to be continued along opioids For dementia continue memantine Attestations 2 Medical Necessity Statement*: Continue medical management Diagnoses Hypoglycemia E16.2 Closed fracture of right hip, initial encounter S72.001A Encounter type: initial encounter
--- NOTE | 2024-02-15 09:55 | ANE.PACU2 ---
Inpatient post-anesthesia follow up: Vital signs: Temperature 99.1 F Pulse Rate 75 Respiratory Rate 15 Blood Pressure 193/119 Pulse Oximetry 92 Oxygen Delivery Me thod Nasal Cannula Oxygen Flow Rate 10 Fraction of Inspir ed Oxygen Hydration adequate: Yes Nausea and vomiting: No Pain level: 4 Mental status: Baseline
--- NOTE | 2024-02-15 09:56 | PC.SOCIAL ---
IMM Update Pg. 2 of IMM updated. Copy provided, copy placed in chart.
[2024-02-15] MEDS: hyDRALAzine 20 mg/mL INJ 1 mL 5 MG IVP (10:17)
--- NOTE | 2024-02-15 10:22 | PC.NURSE ---
1013 - Dr Stern notified of BP and 02 sats on 4L NC
--- NOTE | 2024-02-15 10:22 | PC.NURSE ---
1017 - Dr Stern bedside to assess pt
[2024-02-15] MEDS: hyDRALAzine 20 mg/mL INJ 1 mL (10:39)
--- NOTE | 2024-02-15 10:48 | PC.NURSE ---
1047 - report called to MADISON coello - also noted to nurse that pt has multiple scratches throughout - pt came into pacu with these markings - mode states she is aware
[2024-02-15 11:25] LABS: Glucose Point of Care 160 mg/dL (70-110)
[2024-02-15] MEDS: losartan 50 mg Tablet PO (13:42)
[2024-02-15] MEDS: insulin lispro 100 unit/1 mL SUBCUT ×2 (13:43→17:08)
[2024-02-15 16:18] LABS: Glucose Point of Care 315 mg/dL (70-110)
[2024-02-15] MEDS: divalproex ER 500 mg Tablet (24H) PO ×2 (17:07→20:47)
[2024-02-15] MEDS: hyDRALAzine 20 mg/mL INJ 1 mL 10 MG IVP (17:45)
[2024-02-15] MEDS: metoprolol tartrate 25 mg Tablet PO (20:47)
[2024-02-15] MEDS: apixaban 5 mg Tablet 2.5 MG PO (20:47)
[2024-02-15 21:04] LABS: Glucose Point of Care 260 mg/dL (70-110)
[2024-02-16] VITALS (9 sets, daily range): BP systolic 95–151; BP diastolic 57–92; PULSE 66–113; RESP 16–19; TEMP 36.4–36.8; O2SAT 93–98
--- NOTE | 2024-02-16 00:52 | PC.NURSE ---
Addendum entered by NAYELY Lacey 02/16/24 04:38: Bladder scanned pt at 4:25 on 02/16/24 following previous order to scan Q4H following the pt forcibly removing his sullivan. When I went to scan the pt I noticed more clotting and the pt appeared to be actively bleeding again. I looked over the pt and noticed his sheets and the niels were both damp and looked urine stained. I scanned the pt and found a volume of 446ml. Contacted Doctor and was told to scan again in two hours. Addendum entered by NAYELY Lacey 02/16/24 01:21: Pt still actively bleeding fifteen minutes after sullivan removed. Doctor notified. Now orders are to hold Apixaban until bleeding stops and bladder scan Q4H to ensure there is no retention due to clots. First scan showed approximately 40mls. Will continue to monitor. Original Note: At 23:45 pt removed sullivan with bulb intact. Blood and large clots were noted. Urethra didn't appear torn. Will continue to monitor.
[2024-02-16] MEDS: OLANZapine 10 mg VIAL 5 MG IM (01:06)
[2024-02-16] MEDS: water for injection-sterile 10 ML 0.0100000000000000002 ML (01:14)
[2024-02-16 05:23] LABS: Basophils % 0.1 %; Eosinophils % 0.1 %; Hematocrit 37.9 % (37-53); Lymphocytes # 1.6 10^3/uL (0.8-4.8); Lymphocytes % 11.1 %; Mean Corpuscular HGB Conc 31.7 g/dL (30-55); Mean Corpuscular Hemoglobin 27.1 pg (27-33); Mean Corpuscular Volume 85.6 fl (82-101); Mean Platelet Volume 9.4 fL (7.4-10.4); Monocytes # 1.4 10^3/uL (0.2-0.9); Monocytes % 9.7 %; Neutrophils # 11.11 10^3/uL (1.8-7.7); Neutrophils % 78.4 %; Nucleated Red Blood Cells % 0 %; Platelet Count 375 10^3/cmm (157-399); Red Blood Count 4.43 10^6/uL (3.85-5.65); Red Cell Distribution Width 16.5 % (12.1-15.1); White Blood Count 14.16 10^3/uL (3.29-11.43)
[2024-02-16] MEDS: morphine IR 15 mg Tablet PO (05:27)
[2024-02-16 05:44] LABS: Anion Gap 11.3 (5-19); Blood Urea Nitrogen 15 mg/dL (8-23); Calcium 8.6 mg/dL (8.5-10.5); Carbon Dioxide 31 mmol/L (22-29); Chloride 91 mmol/L (98-107); Creatinine Clr Calc Pharmacy 91.1976; Glomerular Filtration Rate 74.8 mL/min (90-130); Glucose 147 mg/dL (65-115); Osmolality Calculated 272 mOsm/kg (285-295); Potassium 4.3 mmol/L (3.5-5.1); Sodium 129 mmol/L (136-145)
[2024-02-16 06:41] LABS: Glucose Point of Care 151 mg/dL (70-110)
[2024-02-16] MEDS: ceFAZolin 2,000 MG in sodium chloride 0.9% (plus) 50 ML 100 MG IV (08:35)
[2024-02-16] MEDS: insulin lispro 100 unit/1 mL SUBCUT ×3 (08:40→17:40)
[2024-02-16] MEDS: sennosides-docusate Tablet 1 TAB PO (08:41)
[2024-02-16] MEDS: losartan 50 mg Tablet PO (08:41)
[2024-02-16] MEDS: metoprolol tartrate 25 mg Tablet PO ×2 (08:41→21:24)
[2024-02-16] MEDS: amlodipine 10 mg Tablet PO (08:41)
[2024-02-16] MEDS: aspirin 81 mg EC Tablet PO (08:42)
[2024-02-16] MEDS: divalproex ER 500 mg Tablet (24H) PO ×3 (08:42→21:24)
[2024-02-16 10:42] LABS: Glucose Point of Care 183 mg/dL (70-110)
--- NOTE | 2024-02-16 11:42 | P.PN_ITS ---
Subjective 2 Subjective: Patient developed hematuria after tugging on his Faye catheter patient removed his Faye catheter with inflated balloon Today we are doing bladder irrigation he has significant hematuria Retaining urine He is verbally redirectable He does have dementia He is full code Hemoglobin stable so far no hemodynamic instability Vitals/I&O/Wt Last Vital Signs Temp 97.6 F 02/16/24 07:58 Pulse 83 02/16/24 07:58 Resp 18 02/16/24 07:58 BP 151/77 02/16/24 08:41 Pulse Ox 93 02/16/24 07:58 O2 Del Method Nasal Cannula 02/16/24 07:58 O2 Flow Rate 2 02/16/24 07:58 02/15/24 02/16/24 02/16/24 22:59 06:59 14:59 Intake Total 810 / 2079 6.667 / 2085.667 98.333 / 98.333 Output Total 1200 / 4220 2079 / 0 Balance -390 / -2141 6.667 / -2134.333 -1981.667 / -1981.667 Weight last 48 hrs Weight 105.432 kg Weight 108.908 kg Physical Exam 2 Narrative: Patient is probated actable Hematuria noted GCS 15 Nonfocal neuroexam No signs of dehydration Awake and alert S1, S2 Currently on 2 L nasal cannula Urinary Catheter Management: Faye: Cath Placed During This Visit: yes, but has since been removed by the nurse Reason for Continuing Indwelling Catheter: Decision to DC Catheter Urinary Catheter Date of Insertion: 02/13/24 Urinary Catheter Time of Insertion: 18:27 Date Urinary Catheter Removed: 02/15/24 Time Urinary Catheter Discontinued: 22:00 3-way Urethral CBI: Cath Placed During This Visit: yes Urinary Catheter Date of Insertion: 02/16/24 Urinary Catheter Time of Insertion: 11:00 Data 02/16/24 04:42 02/16/24 04:42 A&P Assessment and plan (1) Hematuria: (2) Hypoglycemia: (3) Closed fracture of right hip: Qualifiers: Encounter type: initial encounter Qualified Code(s): S72.001A - Fracture of unspecified part of neck of right femur, initial encounter for closed fracture Plan Traumatic Faye cath removal Hematuria Start CBI Elevation to remove clots first and then start CBI Monitor H&H Monitor for drop in hemoglobin and hemodynamic instability Status post intramedullary nail postop day 1 Requiring 2 L after surgery Wean off oxygen to room air Patient has dementia makes it from Continue memantine Full code Regular diet Eliquis on hold which was added as DVT prophylaxis after surgery Hypertension: Continue losartan, metoprolol and amlodipin e Attestations 2 Medical Necessity Statement*: Possible discharge once hematuria resolved Coding Level of Care Code Acute Code for Chg Fwd Diagnoses Hematuria R31.9 Hypoglycemia E16.2 Closed fracture of right hip, initial encounter S72.001A Encounter type: initial encounter
[2024-02-16] MEDS: oxyCODONE-APAP 5-325 mg Tablet 1 TAB PO (14:08)
[2024-02-16 17:22] LABS: Glucose Point of Care 144 mg/dL (70-110)
[2024-02-16 20:42] LABS: Glucose Point of Care 215 mg/dL (70-110)
[2024-02-17] VITALS (8 sets, daily range): BP systolic 121–161; BP diastolic 76–91; PULSE 70–78; RESP 16–18; TEMP 36.7–37.1; O2SAT 91–94
[2024-02-17 05:42] LABS: Basophils # 0.1 10^3/uL (0.0-0.1); Basophils % 0.5 %; Eosinophils # 0.3 10^3/uL (0.0-0.8); Eosinophils % 2.1 %; Hematocrit 35.7 % (37-53); Lymphocytes # 2.3 10^3/uL (0.8-4.8); Lymphocytes % 17.3 %; Mean Corpuscular HGB Conc 31.4 g/dL (30-55); Mean Platelet Volume 9.1 fL (7.4-10.4); Monocytes # 1.4 10^3/uL (0.2-0.9); Monocytes % 10.4 %; Neutrophils # 9.03 10^3/uL (1.8-7.7); Neutrophils % 69.2 %; Nucleated Red Blood Cells % 0 %; Platelet Count 341 10^3/cmm (157-399); Red Blood Count 4.15 10^6/uL (3.85-5.65); Red Cell Distribution Width 16.6 % (12.1-15.1); White Blood Count 13.04 10^3/uL (3.29-11.43)
[2024-02-17 06:17] LABS: Anion Gap 12.5 (5-19); Blood Urea Nitrogen 27 mg/dL (8-23); Calcium 8.7 mg/dL (8.5-10.5); Carbon Dioxide 30 mmol/L (22-29); Chloride 93 mmol/L (98-107); Creatinine Clr Calc Pharmacy 65.1893; Glomerular Filtration Rate 50.7 mL/min (90-130); Glucose 90 mg/dL (65-115); Osmolality Calculated 277 mOsm/kg (285-295); Potassium 4.5 mmol/L (3.5-5.1); Sodium 131 mmol/L (136-145)
[2024-02-17 06:22] LABS: Glucose Point of Care 92 mg/dL (70-110)
[2024-02-17] MEDS: amlodipine 10 mg Tablet PO (08:14)
[2024-02-17] MEDS: oxyCODONE-APAP 5-325 mg Tablet 1 TAB PO (08:14)
[2024-02-17] MEDS: metoprolol tartrate 25 mg Tablet PO (08:14)
[2024-02-17] MEDS: sennosides-docusate Tablet 1 TAB PO (08:14)
[2024-02-17] MEDS: losartan 50 mg Tablet PO (08:15)
[2024-02-17] MEDS: divalproex ER 500 mg Tablet (24H) PO (08:16)
--- NOTE | 2024-02-17 10:53 | PM.DCS ---
Discharge Providers Date of Admission: 02/13/24 18:20 Date of Discharge: February 17, 2024 Attending Provider at Admission: Alex Cortes MD Attending Provider at Discharge: Alex Cortes MD Diagnoses at Discharge Discharge Diagnosis (1) Hematuria: Status: Acute (2) Hypoglycemia: Status: Acute (3) Closed fracture of right hip: Status: Acute Qualifiers: Encounter type: initial encounter Qualified Code(s): S72.001A - Fracture of unspecified part of neck of right femur, initial encounter for closed fracture Reason for Visit Reason for Visit: r hip pain post fall Hospital Course Hospital Course 68-year-old male who present to the hospital after sustaining a fall at the long-term, he suffered from hip fracture, status post intervention intramedullary nail, patient has history of dementia, he pulled on his Faye catheter after surgery and developed traumatic hematuria, manual irrigation improved blood clots and his hematuria improved his hemoglobin remained stable, he remained hemodynamic stable, we have decided to keep his Faye catheter in place and have him follow-up with a urologist for voiding trial on outpatient basis. Patient may resume his Eliquis low-dose for DVT prophylaxis. He is not requiring significant oxygen He is doing well with physical therapy He became hypoglycemic requiring D5 IV fluids for a while which improved after surgery. For his hypertension I have resumed his losartan, amlodipine Physical Exam Narrative: Pleasant cooperative Faye catheter with yellow urine GCS 15 S1, S2 Nonfocal neuroexam Currently on room air Urinary Catheter Management: Faye: Cath Placed During This Visit: yes, but has since been removed by the nurse Reason for Continuing Indwelling Catheter: Decision to DC Catheter Urinary Catheter Date of Insertion: 02/13/24 Urinary Catheter Time of Insertion: 18:27 Date Urinary Catheter Removed: 02/15/24 Time Urinary Catheter Discontinued: 22:00 3-way Urethral CBI: Cath Placed During This Visit: yes Reason for Continuing Indwelling Catheter: Acute Urinary Retention or Obstruction Urinary Catheter Date of Insertion: 02/16/24 Urinary Catheter Time of Insertion: 11:00 Discharge Data Studies Completed and Pending Completed Studies During Hospitalization Category Date Time Status CT hip RT wo con* [id number] Routine Cat Scan 02/14/24 07:48 Completed XR chest 1V portable [id number] Stat Exams 02/13/24 16:43 Completed XR hip RT 2-3V wo/w pel* [id number] Routine Exams 02/15/24 00:00 Completed XR hip RT 2-3V wo/w pel* [id number] Stat Exams 02/13/24 16:40 Completed Radiology Impressions Chest X-Ray 02/13/24 16:43 IMPRESSION: 1. Nonspecific masslike consolidative opacities partially opacifying the left lower hemithorax which follow-up CT chest recommended for further assessment there 2. Deformity left mid ribcage that may be secondary to old fractures and should also be reassessed on follow-up chest CT. Hip CT 02/14/24 07:48 IMPRESSION: Mildly comminuted and impacted intratrochanteric fracture. Remote RIGHT inferior pubic rami fracture. Small soft tissue hematoma/contusion lateral to the RIGHT hip fracture. RIGHT femoral head osteonecrosis. Hip/Pelvis X-Ray 02/15/24 00:00 IMPRESSION: Left hip fracture with fixation without abnormality. Laboratory Results WBC 13.04 10^3/uL (3.29-11.43) H 02/17/24 05:17 RBC 4.15 10^6/uL (3.85-5.65) 02/17/24 05:17 Hgb 11.20 g/dL (11.27-16.99) L 02/17/24 05:17 Hct 35.7 % (37-53) L 02/17/24 05:17 MCV 86.0 fl (82-101) 02/17/24 05:17 MCH 27.0 pg (27-33) 02/17/24 05:17 MCHC 31.4 g/dL (30-55) 02/17/24 05:17 RDW 16.6 % (12.1-15.1) H 02/17/24 05:17 Plt Count 341 10^3/cmm (157-399) 02/17/24 05:17 MPV 9.1 fL (7.4-10.4) 02/17/24 05:17 Neut % (Auto) 69.2 % 02/17/24 05:17 Lymph % (Auto) 17.3 % 02/17/24 05:17 [place] % (Auto) 10.4 % 02/17/24 05:17 Eos % (Auto) 2.1 % 02/17/24 05:17 Baso % (Auto) 0.5 % 02/17/24 05:17 Neut # (Auto) 9.03 10^3/uL (1.8-7.7) H 02/17/24 05:17 Lymph # (Auto) 2.3 10^3/uL (0.8-4.8) 02/17/24 05:17 [place] # (Auto) 1.4 10^3/uL (0.2-0.9) H 02/17/24 05:17 Eos # (Auto) 0.3 10^3/uL (0.0-0.8) 02/17/24 05:17 Baso # (Auto) 0.1 10^3/uL (0.0-0.1) 02/17/24 05:17 Nucleated RBC % (auto) 0 % 02/17/24 05:17 Nucleated RBCs # 0.0 /100WBC 02/17/24 05:17 PT 13.50 SECONDS (12.1-14.9) 02/13/24 17:11 INR 1.00 (0.8-1.2) 02/13/24 17:11 Sodium 131 mmol/L (136-145) L 02/17/24 05:17 Potassium 4.5 mmol/L (3.5-5.1) 02/17/24 05:17 Chloride 93 mmol/L (98-107) L 02/17/24 05:17 Carbon Dioxide 30 mmol/L (22-29) H 02/17/24 05:17 Anion Gap 12.5 (5-19) 02/17/24 05:17 BUN 27 mg/dL (8-23) H 02/17/24 05:17 Creatinine 1.4 mg/dL (0.7-1.2) H 02/17/24 05:17 GFR Calculation 50.7 mL/min (90-130) L 02/17/24 05:17 Glucose 90 mg/dL (65-115) 02/17/24 05:17 POC Glucose 92 mg/dL (70-110) 02/17/24 06:18 Estimat Average Glucose 128 02/13/24 17:11 Hemoglobin A1c 6.1 % (4.0-6.0) H 02/13/24 17:11 Calculated Osmolality 277 mOsm/kg (285-295) L 02/17/24 05:17 Calcium 8.7 mg/dL (8.5-10.5) 02/17/24 05:17 Phosphorus 3.3 mg/dL (2.5-4.5) 02/14/24 04:35 Magnesium 1.8 mg/dL (1.7-2.3) 02/14/24 04:35 Total Bilirubin 0.2 mg/dL (0.15-1.2) 02/13/24 17:11 AST 24 U/L (0-40) 02/13/24 17:11 ALT 10 U/L (0-41) 02/13/24 17:11 Alkaline Phosphatase 104 U/L (40-130) 02/13/24 17:11 C-Reactive Protein 38.6 mg/L (0.0-4.9) H 02/14/24 04:35 Total Protein 7.3 g/dL (6.6-8.7) 02/13/24 17:11 Albumin 2.7 g/dL (3.5-5.2) L 02/13/24 17:11 Globulin 4.6 g/dL (1.3-4.6) 02/13/24 17:11 Vitamin B12 1008 pg/mL (232-1245) 02/13/24 17:11 TSH 5.23 uIU/mL (0.27-4.20) H 02/13/24 17:11 Vitals Last Vital Signs Temp 98.3 F 02/17/24 07:38 Pulse 78 02/17/24 07:42 Resp 18 02/17/24 08:14 BP 161/91 02/17/24 08:15 Pulse Ox 94 02/17/24 07:42 O2 Del Method Nasal Cannula 02/17/24 07:42 O2 Flow Rate 2 02/17/24 07:42 Discharge Plan Discharge Patient Disposition: Home Condition: Stable Prescriptions: New tamsulosin 0.4 mg capsule 0.4 mg PO DAILY Qty: 14 0RF Eliquis 5 mg Tablet 2.5 mg PO BID@0900,2100 Qty: 40 0RF Continued losartan 50 mg tablet 50 mg PO DAILY acetaminophen 325 mg Tablet 650 mg PO QID PRN (Reason: Pain) hydrocodone-acetaminophen 5-325 mg tablet 1 tab PO Q8H PRN (Reason: Pain) Narcan 0.4 mg/mL Solution 0.2 mg SUBCUT Q2M PRN (Reason: Opioid Overdose) Rx Instructions: NTExceed 10 mg total dose/episode doxepin 10 mg capsule 10 mg PO BEDTIME acetaminophen 500 mg Tablet 1,000 mg PO BID trazodone 100 mg tablet 200 mg PO BEDTIME pantoprazole 40 mg tablet,delayed release (DR/EC) 40 mg PO DAILY ferrous sulfate 325 mg (65 mg iron) Tablet 325 mg PO DAILY divalproex 500 mg tablet extended release 24 hr 500 mg PO TID Mylanta 200-200-20 mg/5 mL Suspension 30 ml PO QID PRN (Reason: Pain) Rx Instructions: administer between meals and at bedtime fluticasone propionate 50 mcg/actuation spray,suspension 2 spray INTRANASAL QAM docusate sodium 100 mg Tablet 100 mg PO BID loratadine 10 mg Tablet 10 mg PO DAILY risperidone 0.5 mg tablet 0.5 mg PO BID Cymbalta 60 mg Capsule,Delayed Release(Dr/Ec) 60 mg PO BID memantine 28 mg capsule,sprinkle,ER 24hr 28 mg PO DAILY Novolog U-100 Insulin aspart 100 unit/mL solution 20 unit SUBCUT TID Rx Instructions: PER SLIDING SCALE Tresiba FlexTouch U-100 100 unit/mL (3 mL) insulin pen 44 unit SUBCUT BID Discontinued atorvastatin 40 mg tablet 40 mg PO BEDTIME Aspir-81 81 mg Tablet,Delayed Release (Dr/Ec) 81 mg PO DAILY Discharge Orders: Discharge Order (Routine); Ordered 02/17/24 Ordered By: Alex Cortes Referrals: Rick Martinez MD [Referring] - 4-7 days Discharge Diet: Diabetic Discharge Activity: Increase activity as tolerated Patient Instructions: Opioid Safety Activity Restrictions/Additional Instructions: You are being discharged from the hospital today during which time you have been under the care of Dr. Ag. You had a right hip fracture. You were treated for this injury with right hip nail. You may resume you normal diet (including any special diets as directed by your primary doctor) as well as your home medications. You should follow up with you primary doctor if you have any questions regarding medication you took prior to your stay in the hospital. You may take your pain medication as prescribed. After the first few days, take your pain medication as needed. Do not drive or drink alcohol while taking your pain medication. Your injury may increase your risk of developing a blood clot,or DVT, in your arm or leg. This could potentially dislodge and travel to your lungs and become a life threatening condition called apulmonary embolus,or PE. You have been prescribed aspirin to be taken to prevent this. Frequent movement of the legs will also help prevent this from occurring. If you develop any new or worsening cough, chestpain, bloody sputum or shortness of breath, call 911 or go to the EmergencyRoom. Always keep your surgical incision/dressing clean and dry. If you experience increasing pain at your incision site, redness, swelling, increasing discharge, foul odors, or fevers (greater than 100.4), night sweats or chills you should call the office at the above number. If you feel this is an emergency you should be evaluated in the Emergency Department of a nearby hospital. Orthopedic Patient Instructions Summary: Weight Bearing: Weight-bear as tolerated Activity: As tolerated. Diet: Regular. Wound Care: Keep dressing clean and dry. Anticoagulation: Aspirin Pain Medication: Take only as needed. Ice, rest and elevation will be of great benefit. Please plan to follow-up [facility] Dr Ag in 2 weeks. You will need to call the clinic [phone] to schedule this visit. Thank you far allowing me to participate in your care. Do not hesitate to call the office with any questions or concerns. Discharge Attestations Time Spent in Discharge Care*: greater than 30 min Quality Metrics Clinical Quality Measures [ No reported AMI, CVA or VTE this stay] Coding Level of Care Code Acute Code for Chg Fwd Diagnoses Hematuria R31.9 Hypoglycemia E16.2 Closed fracture of right hip, initial encounter S72.001A Encounter type: initial encounter
[2024-02-17 11:24] LABS: Glucose Point of Care 153 mg/dL (70-110)
[2024-02-17] MEDS: acetaminophen 500 mg Tablet PO (12:05)
[2024-02-17] MEDS: insulin lispro 100 unit/1 mL SUBCUT (12:06)
--- NOTE | 2024-02-17 13:07 | PC.SOCIAL ---
IMM updated Updated pt on IMM. No questions voiced. Provided pt a copy. Initialed, dated, & timed copy in chart.
[2024-02-17 13:35] LABS: SARS Covid-2 Antigen negative (Negative)
== END 2024-02-17 14:30 | disposition skilled nursing facility (03) | DRG 482 ==
LOC: ER 16:54 → MEDSURG 18:21
PROVIDERS: Orthopaedic Surgery; Admitting Provider Internal Medicine; Emergency Provider Emergency Medicine; Visit Provider Internal Medicine
PROC: 0QS636Z Reposition Right Upper Femur with Intramedullary Internal Fixation Device, Percutaneous Approach (ICD-10-PCS; CPT 27245; principal; 2024-02-15 15:55)
DX: S72.141A Displaced intertrochanteric fracture of right femur, initial encounter for closed fracture (principal); W01.0XXA Fall on same level from slipping, tripping and stumbling without subsequent striking against object, initial encounter; T83.098A Other mechanical complication of other urinary catheter, initial encounter; E11.649 Type 2 diabetes mellitus with hypoglycemia without coma; F03.90 Unspecified dementia, unspecified severity, without behavioral disturbance, psychotic disturbance, mood disturbance, and anxiety; I10 Essential (primary) hypertension; R33.9 Retention of urine, unspecified; R31.9 Hematuria, unspecified; Y99.9 Unspecified external cause status
CPT/HCPCS: 36415; 36416; 51702; 51798; 71045; 73502; 73700; 76000; 80048; 80053; 82607; 82962; 83036; 83735; 84100; 84443; 85025; 85610; 86140; 87426; 93005; 96372; 96374; 96375; 96376; 97110; 97116; 97161; 97166; 97530; 99285; A4216; C1713; J0360; J0690; J1100; J1610; J1815; J2250; J2270; J2405; J2704; J3010; J3490; J7030; J7799

== ENCOUNTER → 2024-03-15 08:45 | Outpatient (BNVA) | payer MEDICARE, MEDICAID, SELFPAY | PROVIDERS: PCP Internal Medicine; Visit Provider Orthopaedic Surgery | DX: S72.141A Displaced intertrochanteric fracture of right femur, initial encounter for closed fracture (principal); X58.XXXA Exposure to other specified factors, initial encounter | CPT/HCPCS: 73502; 99024 ==

== ENCOUNTER 2024-05-04 07:18 | Emergency (ER) | payer MEDICARE, MEDICAID, SELFPAY ==
[2024-05-04] VITALS (40 sets, daily range): BP systolic 128–190; BP diastolic 88–137; PULSE 84–109; RESP 17–42; TEMP 36.6; O2SAT 87–99; BMI 29.4
[2024-05-04] MEDS: dextrose 10% 250 ML 1000 ML IV (07:30)
--- NOTE | 2024-05-04 07:46 | PC.NURSE ---
Glucose via Fingerstick @8282: 163
--- NOTE | 2024-05-04 07:47 | ECG_ITS ---
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 Measurements Intervals [place] Rate: 107 P: 43 OK: 187 QRS: -29 QRSD: 100 T: 97 QT: 355 QTc: 474 Interpretive Statements SINUS TACHYCARDIA SEPTAL MYOCARDIAL INFARCTION , OF INDETERMINATE AGE [40+ ms Q WAVE IN V1/V2] Compared to ECG 02/13/2024 16:53:40 Sinus rhythm no longer present Myocardial infarct finding still present Electronically Signed On 05-04-2024 9:31:34 CDT by Blake Blackmon M.D. [id number] f
--- NOTE | 2024-05-04 08:12 | PC.PHAR ---
PT IS FROM [facility]
--- NOTE | 2024-05-04 08:26 | PC.NURSE ---
Glucose via Fingerstick @5094: 507
--- NOTE | 2024-05-04 09:03 | PC.NURSE ---
Glucose via Fingerstick @0900: 153
[2024-05-04 09:49] LABS: Glucose Point of Care 178 mg/dL (70-110)
[2024-05-04 21:03] LABS: Glucose Point of Care 152 mg/dL (70-110)
[2024-05-04 21:03] LABS: Glucose Point of Care 163 mg/dL (70-110)
[2024-05-04 21:03] LABS: Glucose Point of Care 134 mg/dL (70-110)
--- NOTE | 2024-05-05 16:27 | W.ED.RECABL ---
HPI - Recheck/Abnormal Lab/Rx General: Chief Complaint: Recheck/Abnormal Lab/Rx Stated Complaint: hypoglycemic Time Seen by Provider: 05/04/24 07:23 History of Present Illness: Six 8-year-old male presents to the emergency room with what was initially reported as strokelike symptoms. When EMS arrived his fasting blood sugar was 17 he was given D10 which brought it up to 215 then it decreased again. By the time he arrived here he is hypoglycemic again. At this time he is awake and alert. Monitors blood sugar. Review of Systems Const: Denies: fever(s) or chills Card: Denies: chest pain Resp: Denies: dyspnea GI: Denies: abdominal pain : Denies: dysuria, urinary frequency or urinary urgency Musc: Denies: neck pain or back pain Skin/Breast: Denies: rash PFSH ED PFSH: Medical History Dementia Hematuria Hypoglycemia Closed fracture of right hip Hypertension Diabetes Family History Other CAD (coronary artery disease) Social History Smoking and tobacco/nicotine status: never used tobacco/nicotine Physical Exam Const: COMMON NORMALS: no acute distress GENERAL APPEARANCE: cooperative and comfortable ORIENTATION/CONSCIOUSNESS: Yes awake HENMT: COMMON NORMALS: normocephalic, atraumatic and hearing grossly normal bilaterally HEAD & SCALP: normocephalic and atraumatic Resp: COMMON NORMALS: normal respiratory effort, No retractions, No use of accessory muscles and clear to auscultation bilaterally AUSCULTATION: clear to auscultation bilaterally Cardio: COMMON NORMALS: regular rate, regular rhythm and No murmurs present (Cardio) RATE: regular rate RHYTHM: regular rhythm GI: COMMON NORMALS: Soft to palpation and No hepatosplenomegaly present AUSCULTATION: Yes normoactive bowel sounds PALPATION: Yes Soft to palpation, No Tenderness to palpation present (GI), No Guarding due to palpation present (GI) and Yes No hepatosplenomegaly present Extremity: COMMON NORMALS: normal to inspection, capillary refill normal, no clubbing, cyanosis or edema, no calf tenderness and no pedal edema Skin: COMMON NORMALS: no rashes or lesions noted GENERAL SKIN EXAM: no rashes or lesions noted Course Vital Signs: Vital signs: Vital Signs Temperature 97.8 F 05/04/24 07:19 Pulse Rate 89 05/04/24 12:23 Respiratory Rate 42 H 05/04/24 10:10 Blood Pressure 190/137 05/04/24 12:23 Pulse Oximetry 87 L 05/04/24 11:05 Oxygen Delivery Me thod Room Air 05/04/24 09:04 MDM - Recheck/Abnormal Lab/Rx Medical Decision Making Monitor blood sugar. Gave IV D10 and fed the patient continue to monitor blood sugar remains sustained will discharge patient home. Continue to monitor blood sugar closely. Should monitor every 2 hours today while at home and take blood sugar log to review with physician. Return if has further problems. Lab Data Laboratory Results POC Glucose 178 mg/dL (70-110) H 05/04/24 09:45 No radiology studies performed this visit Discharge Plan Discharge Patient Disposition: Home Clinical Impression: Hypoglycemia Condition: Stable Prescriptions: No Action losartan 50 mg tablet 100 mg PO DAILY acetaminophen 325 mg Tablet 650 mg PO QID PRN (Reason: Pain) hydrocodone-acetaminophen 5-325 mg tablet 1 tab PO Q8H PRN (Reason: Pain) naloxone 0.4 mg/mL Solution 0.2 mg SUBCUT Q2M PRN (Reason: Opioid Overdose) Rx Instructions: NTExceed 10 mg total dose/episode doxepin 10 mg capsule 10 mg PO BEDTIME acetaminophen 500 mg Tablet 1,000 mg PO BID pantoprazole 40 mg tablet,delayed release (DR/EC) 40 mg PO DAILY ferrous sulfate 325 mg (65 mg iron) Tablet 325 mg PO DAILY divalproex 500 mg tablet extended release 24 hr 500 mg PO TID fluticasone propionate 50 mcg/actuation spray,suspension 2 spray INTRANASAL QAM docusate sodium 100 mg Tablet 100 mg PO BID loratadine 10 mg Tablet 10 mg PO DAILY risperidone 0.5 mg tablet 0.5 mg PO BID duloxetine [Cymbalta] 60 mg Capsule,Delayed Release(Dr/Ec) 60 mg PO BID memantine 28 mg capsule,sprinkle,ER 24hr 28 mg PO DAILY insulin aspart U-100 [Novolog U-100 Insulin aspart] 100 unit/mL solution 10 unit SUBCUT TID Rx Instructions: PER SLIDING SCALE insulin degludec [Tresiba FlexTouch U-100] 100 unit/mL (3 mL) insulin pen 40 unit SUBCUT BID Eliquis 5 mg Tablet 2.5 mg PO BID@0900,2100 Qty: 40 0RF tamsulosin 0.4 mg capsule 0.4 mg PO DAILY Qty: 14 0RF levothyroxine 25 mcg tablet 25 mcg PO QAM Rx Instructions: ALONG WITH 200MCG TO= 225MG TOTAL Milk of Magnesia 400 mg/5 mL Suspension 30 ml PO DAILY PRN (Reason: Constipation) bisacodyl 10 mg Suppository 10 mg OK DAILY PRN (Reason: Constipation) trazodone 150 mg tablet 150 mg PO QPM levothyroxine 200 mcg tablet 200 mcg PO QAM Rx Instructions: ALONG WITH 25MCG TO= 225MG TOTAL bupropion HCl 150 mg tablet extended release 24 hr 150 mg PO QAM Discharge Orders: Discharge ED (Routine); Ordered 05/04/24 Ordered By: Rowdy Choi Referrals: Luc Noe MD [Primary Care Provider] - Discharge Diet: Usual diet Discharge Activity: Increase activity as tolerated Patient Instructions: Opioid Safety, Pain Management Activity Restrictions/Additional Instructions: Thank you for choosing [facility] for your healthcare needs. You were seen today with hypoglycemia (low blood sugar). Monitor your bloos sugars closely today. Eat your usual diet. check with your primary care provider for any adjustments to your insulin regiment. Coding Level of Care Code ED Housing Management Representative for Ty Mathews
== END 2024-05-04 12:24 | disposition home or self-care (01) ==
PROVIDERS: Emergency Provider Family Medicine; PCP Internal Medicine
DX: E11.649 Type 2 diabetes mellitus with hypoglycemia without coma (principal); Z79.4 Long term (current) use of insulin; Z79.01 Long term (current) use of anticoagulants; F03.90 Unspecified dementia, unspecified severity, without behavioral disturbance, psychotic disturbance, mood disturbance, and anxiety; I10 Essential (primary) hypertension
CPT/HCPCS: 36416; 82962; 93005; 99284; J7799

== ENCOUNTER → 2024-05-29 08:49 | Outpatient (BNVA) | payer MEDICARE, MEDICAID, SELFPAY | PROVIDERS: PCP Internal Medicine; Visit Provider Orthopaedic Surgery | DX: Z48.89 Encounter for other specified surgical aftercare (principal) | CPT/HCPCS: 99024 ==

== ENCOUNTER 2024-06-03 22:10 | Emergency (ER) | payer MEDICARE, MEDICAID, SELFPAY ==
[2024-06-03 22:12] VITALS: BP 130/102; PULSE 107; RESP 18; TEMP 36.6; O2SAT 95; BMI 29.8
[2024-06-03 22:24] VITALS: BP 130/102; PULSE 113; RESP 18; O2SAT 92
--- NOTE | 2024-06-03 22:27 | CTR_ITS ---
PROCEDURE INFORMATION: Exam: CT Head Without Contrast Exam date and time: 06/03/2024 10:37 PM Age: 68 years old Clinical indication: Injury or trauma; Blunt trauma (contusions or hematomas); Patient HX: EMS arrival from [facility] for fall. Patient fell face first out of wheelchair onto floor. Laceration to RT eyebrow. Anticoagulated. C collar in place. TECHNIQUE: Imaging protocol: Computed tomography of the head without contrast. Radiation optimization: All CT scans at this facility use at least one of these dose optimization techniques: automated exposure control; mA and/or kV adjustment per patient size (includes targeted exams where dose is matched to clinical indication); or iterative reconstruction. COMPARISON: CT head wo con* [id number] 12/06/2023 11:09 AM RADIATION DOSE METRICS: Total DLP (mGy-cm): 1139.98 FINDINGS: Brain: Old lacunar infarct in the left basal ganglia redemonstrated. Subcortical and periventricular white matter changes consistent with small-vessel ischemic disease in the appropriate clinical setting. Small-vessel ischemic disease. No acute intracranial abnormality. Encephalomalacia in the left cerebellum redemonstrated. Cerebral ventricles: No ventriculomegaly. Paranasal sinuses: Visualized sinuses are unremarkable. No fluid levels. Mastoid air cells: Visualized mastoid air cells are well aerated. Bones: Unremarkable. No acute fracture. Soft tissues: Unremarkable. CT/CT head wo con* [id number] IMPRESSION: 1. No acute intracranial abnormality. 2. Small-vessel ischemic disease.
--- NOTE | 2024-06-03 22:28 | CTR_ITS ---
PROCEDURE INFORMATION: Exam: CT Cervical Spine Without Contrast Exam date and time: 06/03/2024 10:40 PM Age: 68 years old Clinical indication: Injury or trauma; Blunt trauma; Patient HX: EMS arrival from [facility] for fall. Patient fell face first out of wheelchair onto floor. Laceration to RT eyebrow. Anticoagulated. C collar in place. TECHNIQUE: Imaging protocol: Computed tomography of the cervical spine without contrast. Radiation optimization: All CT scans at this facility use at least one of these dose optimization techniques: automated exposure control; mA and/or kV adjustment per patient size (includes targeted exams where dose is matched to clinical indication); or iterative reconstruction. COMPARISON: CT cervical spin wo con* [id number] 12/06/2023 11:09 AM RADIATION DOSE METRICS: Total DLP (mGy-cm): 548.37 FINDINGS: Bones: Prominent anterior bridging osteophytes at C4-C5, C5-C6 and C6-C7. Lungs: Lung apices are normal. Soft tissues: Unremarkable. CT/CT cervical spin wo con* [id number] IMPRESSION: No acute cervical spine fracture or listhesis.
--- NOTE | 2024-06-03 22:41 | ED_ITS ---
HPI - Head Injury 2 General: Chief complaint: Head Injury Stated complaint: fall, head injury Time Seen by Provider: 06/03/24 22:15 History of Present Illness: 68-year-old male patient presented nursi ng home environment. [facility], [facility] his head. He is anticoagulated due to history of atrial fibrillation. He has a small laceration on his right eyebrow area. He is not complaining of pain. No loss of consciousness. Fall was witnessed by staff. Related Data Home Medications Medication Instructions Recorded Confirmed acetaminophen 325 mg tablet 650 mg PO QID PRN Pain 02/14/24 05/29/24 acetaminophen 500 mg tablet 1,000 mg PO BID 02/14/24 05/29/24 divalproex 500 mg tablet,extended 500 mg PO TID 02/14/24 05/29/24 release 24 hr docusate sodium 100 mg tablet 100 mg PO BID 02/14/24 05/29/24 doxepin 10 mg capsule 10 mg PO BEDTIME 02/14/24 05/29/24 duloxetine 60 mg capsule,delayed 60 mg PO BID 02/14/24 05/29/24 release (Cymbalta) ferrous sulfate 325 mg (65 mg 325 mg PO DAILY 02/14/24 05/29/24 iron) tablet fluticasone propionate 50 2 spray intranasal QAM 02/14/24 05/29/24 mcg/actuation nasal spray,suspension hydrocodone 5 mg-acetaminophen 325 1 tab PO Q8H PRN Pain 02/14/24 05/29/24 mg tablet insulin aspart U-100 100 unit/mL 10 unit SUBCUT TID 02/14/24 05/29/24 subcutaneous solution (Novolog U-100 Insulin aspart) insulin degludec 100 unit/mL (3 40 unit SUBCUT BID 02/14/24 05/29/24 mL) subcutaneous pen (Tresiba FlexTouch U-100 insulin) loratadine 10 mg tablet 10 mg PO DAILY 02/14/24 05/29/24 losartan 50 mg tablet 100 mg PO DAILY 02/14/24 05/29/24 memantine 28 mg capsule 28 mg PO DAILY 02/14/24 05/29/24 sprinkle,extended release 24hr naloxone 0.4 mg/mL injection 0.2 mg SUBCUT Q2M PRN Opioid 02/14/24 05/29/24 solution Overdose pantoprazole 40 mg tablet,delayed 40 mg PO DAILY 02/14/24 05/29/24 release risperidone 0.5 mg tablet 0.5 mg PO BID 02/14/24 05/29/24 bisacodyl 10 mg rectal suppository 10 mg KS DAILY PRN Constipation 05/04/24 05/29/24 bupropion HCl 150 mg 24 hr tablet, 150 mg PO QAM 05/04/24 05/29/24 extended release levothyroxine 200 mcg tablet 200 mcg PO QAM 05/04/24 05/29/24 levothyroxine 25 mcg tablet 25 mcg PO QAM 05/04/24 05/29/24 magnesium hydroxide 400 mg/5 mL 30 ml PO DAILY PRN Constipation 05/04/24 05/29/24 oral suspension (Milk of Magnesia) trazodone 150 mg tablet 150 mg PO QPM 05/04/24 05/29/24 Previous Rx's Medication Instructions Recorded apixaban 5 mg tablet (Eliquis) 2.5 mg (1/2 x 5 mg) PO 02/17/24 BID@0900,2100 #40 tabs tamsulosin 0.4 mg capsule 0.4 mg PO DAILY #14 caps 02/17/24 Allergies Allergy/AdvReac Type Severity Reaction Status Date / Time No Known Allergies Allergy Verified 06/03/24 22:17 [facility] ED 2 PFSH: Medical History Dementia Hematuria Hypoglycemia Closed fracture of right hip Hypertension Diabetes Family History Other CAD (coronary artery disease) Social History Smoking and tobacco/nicotine status: never used tobacco/nicotine Physical Exam 2 Const: COMMON NORMALS: alert GENERAL APPEARANCE: cooperative and frail appearing; not ill appearing ORIENTATION/CONSCIOUSNESS: Yes awake and Yes oriented to person HENMT: COMMON NORMALS: Normal external nose present HEAD & SCALP: contusion (small right eyebrow) and laceration (1.5 cm r eyebrow); no abrasion NOSE: Normal external nose present Eye: COMMON NORMALS: Equal, round and reactive pupils present and EOMs intact bilaterally PUPIL: Yes Equal, round and reactive pupils present Neck/C-Spine: GENERAL: Yes trachea midline Chest: CHEST: Yes Symmetrical chest wall rise Resp: COMMON NORMALS: normal respiratory effort, No retractions, No use of accessory muscles and clear to auscultation bilaterally AUSCULTATION: clear to auscultation bilaterally Cardio: COMMON NORMALS: regular rate and regular rhythm RATE: regular rate RHYTHM: regular rhythm GI: COMMON NORMALS: Normal to inspection, nondistended, normoactive bowel sounds present Extremity: COMMON NORMALS: no pedal edema Neuro: JANICE COMA SCALE: document [facility] findings [place] coma scale eye opening: Spontaneous [place] coma scale verbal response: Orientated [place] coma scale motor response: Obey commands [place] coma scale total score: 15 S ENSORIUM/ORIENTATION: Yes alert and Yes oriented to person SENSORY EXAM: Yes extremities (intact) Psych: COMMON NORMALS: speech normal SPEECH: Yes normal speech Skin: COMMON NORMALS: no rashes or lesions noted GENERAL SKIN EXAM: no rashes or lesions noted Procedures Laceration Laceration 1: Site: face Side (If applicable): right Size (cm): 1.5 Description: linear Depth: simple, single layer Pre-repair: wound explored and irrigated extensively Skin layer closed with: other (Staple) Number of sutures: 1 Technique: other (With Dermabond) Course 2 Vital Signs: Vital signs: Vital Signs Temperature 97.9 F 06/03/24 22:12 Pulse Rate 108 H 06/03/24 23:09 Respiratory Rate 18 06/03/24 22:24 Blood Pressure 142/107 06/03/24 23:09 Pulse Oximetry 93 06/03/24 23:09 Oxygen Delivery Me thod Room Air 06/03/24 22:24 MDM - Head Injury Medcial Decision Making Laboratory workup not remarkable save hyperglycemia. Head and cervical spine CTs are negative for acute change. Laceration repaired. [facility] will be [facility] back [facility] the [facility]. Return for any concerning symptoms. Lab Data 06/03/24 23:02 06/03/24 23:[address] 06/03/24 22:27 IMPRESSION: 1. No acute intracranial abnormality. 2. Small-vessel ischemic disease. Cervical Spine CT 06/03/24 22:28 IMPRESSION: No acute cervical spine fracture or listhesis. Laboratory Results WBC 7.75 10^3/uL (3.29-11.43) 06/03/24 23:02 RBC 4.54 10^6/uL (3.85-5.65) 06/03/24 23:02 Hgb 12.50 g/dL (11.27-16.99) 06/03/24 23:02 Hct 39.6 % (37-53) 06/03/24 23:02 MCV 87.2 fl (82-101) 06/03/24 23: MCH 27.5 pg (27-33) 06/03/24 23: MCHC 31.6 g/dL (30-55) 06/03/24 23: RDW 15.9 % (12.1-15.1) H 06/03/24 23: Plt Count 330 10^3/cmm (157-399) 06/03/24 23: MPV 9.8 fL (7.4-10.4) 06/03/24 23:02 Neut % (Auto) 72.2 % 06/03/24 23: Lymph % (Auto) 16.1 % 06/03/24 23:02 [place] % (Auto) 9.7 % 06/03/24 23:02 Eos % (Auto) 1.2 % 06/03/24 23:02 Baso % (Auto) 0.3 % 06/03/24 23:02 Neut # (Auto) 5.60 10^3/uL (1.8-7.7) 06/03/24 23:02 Lymph # (Auto) 1.3 10^3/uL (0.8-4.8) 06/03/24 23:02 [place] # (Auto) 0.8 10^3/uL (0.2-0.9) 06/03/24 23:02 Eos # (Auto) 0.1 10^3/uL (0.0-0.8) 06/03/24 23:02 Baso # (Auto) 0.0 10^3/uL (0.0-0.1) 06/03/24 23: Nucleated RBC % (auto) 0 % 06/03/24 23:02 Nucleated RBCs # 0.0 /100WBC 06/03/24 23: Sodium 137 mmol/L (136-145) 06/03/24 23:02 Potassium 3.5 mmol/L (3.5-5.1) 06/03/24 23:02 Chloride 99 mmol/L (98-107) 06/03/24 23:02 Carbon Dioxide 27 mmol/L (22-29) 06/03/24 23:02 Anion Gap 14.5 (5-19) 06/03/24 23:02 BUN 12 mg/dL (8-23) 06/03/24 23:02 Creatinine 1.2 mg/dL (0.7-1.2) 06/03/24 23:02 GFR Calculation 60.6 mL/min (90-130) L 06/03/24 23:02 Glucose 319 mg/dL (65-115) H 06/03/24 23:02 Calculated Osmolality 296 mOsm/kg (285-295) H 06/03/24 23:02 Calcium 8.1 mg/dL (8.5-10.5) L 06/03/24 23:02 Total Bilirubin 0.2 mg/dL (0.15-1.2) 06/03/24 23:02 AST 11 U/L (0-40) 06/03/24 23:02 ALT 7 U/L (0-41) 06/03/24 23:02 Alkaline Phosphatase 103 U/L (40-130) 06/03/24 23:02 Total Protein 6.5 g/dL (6.6-8.7) L 06/03/24 23:02 Albumin 2.6 g/dL (3.5-5.2) L 06/03/24 23:02 Globulin 3.9 g/dL (1.3-4.6) 06/03/24 23:02 All radiology interpretation(s) finalized by discharge Discharge Plan Discharge Patient Disposition: Home Clinical Impression: Contusion of face, Laceration Condition: Stable Prescriptions: No Action losartan 50 mg tablet 100 mg PO DAILY acetaminophen 325 mg Tablet 650 mg PO QID PRN (Reason: Pain) hydrocodone-acetaminophen 5-325 mg tablet 1 tab PO Q8H PRN (Reason: Pain) naloxone 0.4 mg/mL Solution 0.2 mg SUBCUT Q2M PRN (Reason: Opioid Overdose) Rx Instructions: NTExceed 10 mg total dose/episode doxepin 10 mg capsule 10 mg PO BEDTIME acetaminophen 500 mg Tablet 1,000 mg PO BID pantoprazole 40 mg tablet,delayed release (DR/EC) 40 mg PO DAILY ferrous sulfate 325 mg (65 mg iron) Tablet 325 mg PO DAILY divalproex 500 mg tablet extended release 24 hr 500 mg PO TID fluticasone propionate 50 mcg/actuation spray,suspension 2 spray INTRANASAL QAM docusate sodium 100 mg Tablet 100 mg PO BID loratadine 10 mg Tablet 10 mg PO DAILY risperidone 0.5 mg tablet 0.5 mg PO BID duloxetine [Cymbalta] 60 mg Capsule,Delayed Release(Dr/Ec) 60 mg PO BID memantine 28 mg capsule,sprinkle,ER 24hr 28 mg PO DAILY insulin aspart U-100 [Novolog U-100 Insulin aspart] 100 unit/mL solution 10 unit SUBCUT TID Rx Instructions: PER SLIDING SCALE insulin degludec [Tresiba FlexTouch U-100] 100 unit/mL (3 mL) insulin pen 40 unit SUBCUT BID Eliquis 5 mg Tablet 2.5 mg PO BID@0900,2100 Qty: 40 0RF tamsulosin 0.4 mg capsule 0.4 mg PO DAILY Qty: 14 0RF levothyroxine 25 mcg tablet 25 mcg PO QAM Rx Instructions: ALONG WITH 200MCG TO= 225MG TOTAL Milk of Magnesia 400 mg/5 mL Suspension 30 ml PO DAILY PRN (Reason: Constipation) bisacodyl 10 mg Suppository 10 mg [place] DAILY PRN (Reason: Constipation) trazodone 150 mg tablet 150 mg PO QPM levothyroxine 200 mcg tablet 200 mcg PO QAM Rx Instructions: ALONG WITH 25MCG TO= 225MG TOTAL bupropion HCl 150 mg tablet extended release 24 hr 150 mg PO QAM Discharge Orders: Discharge ED (Routine); Ordered 06/04/24 Ordered By: Alvaro Kerns Referrals: Luc Noe MD [Primary Care Provider] - 1-3 days Patient Instructions: Facial Contusion (ED), Facial Laceration (ED), Opioid Safety, Pain Management Activity Restrictions/Additional Instructions: Samantha should come out in 5 to 7 days. Keep dry for 24 hours, then may wash with soap and water. Do not scrub. Return for worsening mental status or any other problems. Coding Level of Care Code ED Quantitative Associate for Ty Mathews
[2024-06-03 23:08] LABS: Basophils % 0.3 %; Eosinophils # 0.1 10^3/uL (0.0-0.8); Eosinophils % 1.2 %; Hematocrit 39.6 % (37-53); Lymphocytes # 1.3 10^3/uL (0.8-4.8); Lymphocytes % 16.1 %; Mean Corpuscular HGB Conc 31.6 g/dL (30-55); Mean Corpuscular Hemoglobin 27.5 pg (27-33); Mean Corpuscular Volume 87.2 fl (82-101); Mean Platelet Volume 9.8 fL (7.4-10.4); Monocytes # 0.8 10^3/uL (0.2-0.9); Monocytes % 9.7 %; Neutrophils % 72.2 %; Nucleated Red Blood Cells % 0 %; Platelet Count 330 10^3/cmm (157-399); Red Blood Count 4.54 10^6/uL (3.85-5.65); Red Cell Distribution Width 15.9 % (12.1-15.1); White Blood Count 7.75 10^3/uL (3.29-11.43)
[2024-06-03 23:09] VITALS: BP 142/107; PULSE 108; O2SAT 93
[2024-06-03 23:24] LABS: Alanine Aminotransferase 7 U/L (0-41); Albumin Level 2.6 g/dL (3.5-5.2); Alkaline Phosphatase 103 U/L (40-130); Anion Gap 14.5 (5-19); Aspartate Amino Transferase 11 U/L (0-40); Blood Urea Nitrogen 12 mg/dL (8-23); Calcium 8.1 mg/dL (8.5-10.5); Carbon Dioxide 27 mmol/L (22-29); Chloride 99 mmol/L (98-107); Creatinine Clr Calc Pharmacy 74.0651; Globulin 3.9 g/dL (1.3-4.6); Glomerular Filtration Rate 60.6 mL/min (90-130); Glucose 319 mg/dL (65-115); Osmolality Calculated 296 mOsm/kg (285-295); Potassium 3.5 mmol/L (3.5-5.1); Sodium 137 mmol/L (136-145); Total Bilirubin 0.2 mg/dL (0.15-1.2); Total Protein 6.5 g/dL (6.6-8.7)
[2024-06-04] VITALS: BP 145/105; PULSE 110; O2SAT 94
[2024-06-04 01:00] VITALS: BP 142/99; PULSE 96; O2SAT 93
[2024-06-04 02:00] VITALS: BP 171/39; PULSE 100; O2SAT 93
[2024-06-04 03:00] VITALS: BP 172/112; PULSE 98; O2SAT 94
[2024-06-04 04:30] VITALS: BP 194/130; PULSE 96; RESP 18; O2SAT 93
== END 2024-06-04 05:48 | disposition home or self-care (01) ==
PROVIDERS: Emergency Provider Emergency Medicine; PCP Internal Medicine
DX: S01.111A Laceration without foreign body of right eyelid and periocular area, initial encounter (principal); F03.90 Unspecified dementia, unspecified severity, without behavioral disturbance, psychotic disturbance, mood disturbance, and anxiety; I10 Essential (primary) hypertension; Z79.01 Long term (current) use of anticoagulants; Z79.4 Long term (current) use of insulin; W05.0XXA Fall from non-moving wheelchair, initial encounter; Y92.129 Unspecified place in nursing home as the place of occurrence of the external cause; E11.65 Type 2 diabetes mellitus with hyperglycemia
CPT/HCPCS: 36415; 70450; 72125; 80053; 85025; 99284